=== PATIENT | female | born 1935 | race Caucasian/White ===

== ENCOUNTER 2017-08-19 12:12 | Emergency (ER) | payer MEDICARE ==
[2017-08-19] MEDS ORDERED: Albuterol/Ipratropium 3.0-0.5 MG/3 ML Neb Soln NEB ONE (13:54)
[2017-08-19] MEDS ORDERED: Levofloxacin 500 MG Tab PO SCH (14:30)
--- NOTE | 2017-08-19 14:39 | EDM.PDOC ---
ED HPI GENERAL MEDICAL PROBLEM - General Chief Complaint: General Stated Complaint: SOB Time Seen by Provider: 08/19/17 14:24 Source of Information: Reports: Patient, Family, RN History Limitations: Reports: Altered Mental Status, Physical Impairment - History of Present Illness INITIAL COMMENTS - FREE TEXT/NARRATIVE: 82 y.o.w.f was brought to the ED from the [place] due to worsening of SOB. Pt has severe RA. Her puls ox was in the In the 80% without O2. Pt arrived her in the ED with 2 liters of O2 by [place]. Puls ox was 94 then. [place] suggested pt has a pneumonia. Pt's daughter is present. Pt herself is npot able to give a HPI. Pt is 100% bedridden. Temp 37.2 BP 112/67 Onset: Unknown/Unsure Onset Date: 08/18/17 Onset Time: 08:00 Duration: Hour(s):, Getting Worse Location: Reports: Chest Quality: Reports: Other (sob) Improves with: Reports: Medication Worsens with: Reports: Movement Context: Reports: Sick Contact ((?)), Other Associated Symptoms: Reports: Weakness (unable to ambulate), Other (H/O RA) - Related Data Allergies Allergy/AdvReac Type Severity Reaction Status Date / Time aspirin Allergy Cannot Verified 12/13/16 18:54 Remember NSAIDS (Non-Steroidal Allergy Stomach Verified 12/13/16 18:54 Anti-Inflamma Upset Penicillins Allergy Hives Verified 12/13/16 18:54 Home Meds: Home Meds Acetaminophen [Acephen] 650 mg RC ASDIRECTED 12/13/16 [History] Calcium Carbonate/Vitamin D3 [Calcium 500-Vit D3 200 Tablet] 1 each PO DAILY [History] Clopidogrel [Plavix] 75 mg PO DAILY 12/13/16 [History] Cyclobenzaprine HCl 5 mg PO BID PRN 12/13/16 [History] Folic Acid 1 mg PO DAILY 12/13/16 [History] Gabapentin [Neurontin] 300 mg PO TID 12/13/16 [History] Glycerin 1 each RC Q72H PRN 12/13/16 [History] Hydrocodone/Acetaminophen [Lortab 5-325 mg Tablet] 2 each PO QID 12/13/16 [ History] Loratadine 10 mg PO DAILY 12/13/16 [History] Magnesium Hydroxide [Milk of Magnesia] 30 ml PO DAILY PRN 12/13/16 [History] Menthol [Biofreeze] 1 applic TP DAILY 12/13/16 [History] Menthol [Biofreeze] 118 ml TP DAILY 12/13/16 [History] Menthol [Cough Drops] 5 mg MM ASDIRECTED 12/13/16 [History] Methotrexate 20 mg PO TU@0800 12/13/16 [History] Multivitamins/Minerals/Lutein [Certavite SR with Lutein] 1 tab PO DAILY [History] Na Phos,M-B/Na Phos,DI-B [Fleet Enema] 133 ml RC ASDIRECTED PRN 12/13/16 [ History] Teriparatide [Forteo] 20 mcg .XX DAILY 12/13/16 [History] guaiFENesin [Robitussin] 200 mg PO Q4HR PRN 12/13/16 [History] rOPINIRole HCl [Requip] 0.25 mg PO DAILY 12/13/16 [History] Calcium Carbonate [Tums] 1,000 mg PO Q4H PRN 12/14/16 [History] Past Medical History HEENT History: Reports: Cataract, Impaired Vision Cardiovascular History: Reports: [place], Stents 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: Musculoskeletal History: Reports: Fracture, RA Neurological History: Reports: Headaches, Chronic - Infectious Disease History Infectious Disease History: Reports: Chicken Pox, Measles, Mumps - Past Surgical History HEENT Surgical History: Reports: Eye Surgery Musculoskeletal Surgical History: Reports: Other (See Below) Social & Family History - Family History Family Medical History: Noncontributory - Tobacco Use Smoking Status *Q: Former Smoker Years of Tobacco use: 50 Used Tobacco, but Quit: Yes Month Tobacco Last Used: November - Caffeine Use Caffeine Use: Reports: None - Recreational Drug Use Recreational Drug Use: No ED ROS GENERAL - Review of Systems Review Of Systems: Unable To Obtain ED EXAM, GENERAL - Physical Exam Exam: See Below Exam Limited By: Altered Mental Status General Appearance: Alert, WD/WN, Mild Distress, Obese Eye Exam: Bilateral Eye: Normal Inspection Ears: Normal External Exam Ear Exam: Bilateral Ear: Auricle Normal Nose: Normal Inspection Throat/Mouth: Normal Inspection, Normal Lips Head: Atraumatic, Normocephalic Neck: Normal Inspection Respiratory/Chest: No Accessory Muscle Use, Chest Non-Tender, Respiratory Distress Cardiovascular: Normal Peripheral Pulses Peripheral Pulses: 1+: Femoral (L), Femoral (R) GI/Abdominal: Normal Bowel Sounds, Soft (Female) Exam: Deferred Rectal (Female) Exam: Deferred Back Exam: Normal Inspection Extremities: Normal Inspection (severe RA) Neurological: Alert, Other (unable to ambulate, bed ridden) Psychiatric: Depressed Mood, Flat Affect Lymphatic: No Adenopathy Course - Vital Signs Text/Narrative:: 82 y.o.w.f was brought to the ED from the [place] due to worsening of SOB. Pt has severe RA. Her puls ox was in the In the 80% without O2. Pt arrived her in the ED with 2 liters of O2 by [place]. Puls ox was 94 then. [place] suggested pt has a pneumonia. Pt's daughter is present. Pt herself is npot able to give a HPI. Pt is 100% bedridden. Temp 37.2 BP 112/67 PE: Weak, 82 y.o.w.f with disabling RA, weak. denied any pain or discomfort, her daughter on her side. CXR: RUL infiltatrate as PER RAD Labs: WBC 16K Lactic acid 0.9 Na 132 K 3.5 H/H nl Cr. 0.5 BUN 17 RCx results are pending Impression: RUL pneumania with hypoxemia, Severe RA, Bedridden Tx: Levoquin, O2, Duoneb Reexam: Improved Plan: D/C with O2 by [place], Duoneb every 4 hours while awake for 1 day, then reevaluate Pt Last Recorded V/S: Last Vital Signs Temp 37.2 C 08/19/17 14:30 Pulse 96 08/19/17 14:24 Resp 25 H 08/19/17 14:30 BP 112/66 08/19/17 14:30 Pulse Ox 93 L 08/19/17 14:30 - Orders/Labs/Meds Orders: Active Orders 24 hr Category Date Time Status CULTURE BLOOD [BC] Urgent Lab 08/19/17 13:55 Received CULTURE BLOOD [BC] Urgent Lab 08/19/17 14:00 Results Blood Culture x2 Reflex Set [OM.PC] Urgent Oth 08/19/17 13:48 Ordered Labs: Laboratory Tests 08/19/17 08/19/17 08/19/17 Range/Units 13:05 13:05 14:00 WBC 16.1 H (4.5-12.0) X10-3/uL RBC 4.19 (3.23-5.20) x10(6)uL Hgb 13.3 (11.5-15.5) g/dL Hct 39.7 (30.0-51.3) % MCV 94.8 (80-96) fL MCH 31.6 (27.7-33.6) pg MCHC 33.4 (32.2-35.4) g/dL RDW 15.2 (11.5-15.5) % Plt Count 555 H (125-369) X10(3)uL MPV 6.0 L (7.4-10.4) fL Add Manual Diff Yes Neutrophils % (Manual) 63 (46-82) % Lymphocytes % (Manual) 31 (13-37) % Monocytes % (Manual) 3 L (4-12) % Eosinophils % (Manual) 3 (0-5) % Sodium 132 L (135-145) mmol/L Potassium 3.5 (3.5-5.3) mmol/L Chloride 99 L (100-110) mmol/L Carbon Dioxide 25 (23-29) mmol/L BUN 17 (8-23) mg/dL Creatinine 0.5 L (0.6-1.3) mg/dL Est Cr Clr Drug Dosing TNP Estimated GFR (MDRD) > 60 (>60) BUN/Creatinine Ratio 34.0 H (9-20) Glucose 102 (80-116) mg/dL Lactic Acid 0.9 (0.5-2.2) mmol/L Calcium 9.6 (8.6-10.2) mg/dL Meds: Medications Discontinued Medications Generic Name Dose Route Start Last Admin Trade Name Freq PRN Reason Stop Dose Admin Albuterol/Ipratropium 3 ml 08/19/17 13:54 08/19/17 14:11 Duoneb 3.0-0.5 Mg/3 Ml NEB 08/19/17 13:55 3 ml ONETIME ONE Administration Levofloxacin 500 mg 08/19/17 14:30 08/19/17 14:25 Levaquin PO 500 mg Q24H DONAL Administration Departure - Departure Time of Disposition: 14:36 Disposition: Home, Self-Care 01 Condition: Good Clinical Impression: Pneumonia Qualifiers: Laterality: right Lung location: upper lobe of lung - Discharge Information Instructions: Community-Acquired Pneumonia, Adult Referrals: Kevin Bunn MD [Primary Care Provider] - Forms: ED Department Discharge Additional Instructions: Please take the meds as recommended, please f/u, come back if your symptoms get worse acutely. 2 liter o2 by [place] for now. - My Orders Last 24 Hours: My Active Orders 08/19/17 13:48 Blood Culture x2 Reflex Set [OM.PC] Urgent 08/19/17 13:55 CULTURE BLOOD [BC] Urgent 08/19/17 14:00 CULTURE BLOOD [BC] Urgent - Assessment/Plan Last 24 Hours: My Active Orders 08/19/17 13:48 Blood Culture x2 Reflex Set [OM.PC] Urgent 08/19/17 13:55 CULTURE BLOOD [BC] Urgent 08/19/17 14:00 CULTURE BLOOD [BC] Urgent
--- NOTE | 2017-08-19 15:52 | CR ---
INDICATION: Cough. CHEST: AP upright portable view of the chest 08/19/2017 was compared with 03/01 and 07/28/2015, revealing infiltration in the right upper lobe, which would be compatible with an area of pneumonia. Poor inspiration does emphasize markings in general, as well as the heart size, which may be slightly enlarged. The aorta is tortuous and calcified. Overlying EKG leads are noted. Degenerative changes are noted at the left glenohumeral joint and appeared severe. IMPRESSION: Right upper lobe pneumonia. Report was given by phone to Dr. Anguiano soon after the examination was complete , 08/19/2017. [facility]
[2017-08-19 18:04] VITALS: BP 112/66
== END 2017-08-19 14:45 | disposition home or self-care (01) ==
LOC: FB.ED 12:12
DX: J18.9 Pneumonia, unspecified organism (principal); R09.02 Hypoxemia; M06.9 Rheumatoid arthritis, unspecified; I25.2 Old myocardial infarction; Z88.0 Allergy status to penicillin; Z88.8 Allergy status to other drugs, medicaments and biological substances; Z88.6 Allergy status to analgesic agent; Z79.899 Other long term (current) drug therapy; Z87.891 Personal history of nicotine dependence
CPT/HCPCS: 36415; 71010; 80048; 83605; 85025; 87040; 94640; 99285; A9270; J7620; 87077; 87186; 99284

== ENCOUNTER 2017-09-17 17:28 | Inpatient (IN) | payer MEDICARE ==
[2017-09-17] MEDS ORDERED: Albuterol/Ipratropium 3.0-0.5 MG/3 ML Neb Soln NEB ONE (18:26)
[2017-09-17] MEDS ORDERED: Albuterol/Ipratropium 3.0-0.5 MG/3 ML Neb Soln INH PRN (18:29)
--- NOTE | 2017-09-17 18:36 | EDM.PDOC ---
ED HPI GENERAL MEDICAL PROBLEM - General Stated Complaint: UTI AND PNEUMONIA Time Seen by Provider: 09/17/17 17:28 Source of Information: Reports: Patient, RN History Limitations: Reports: Altered Mental Status, Physical Impairment - History of Present Illness INITIAL COMMENTS - FREE TEXT/NARRATIVE: 82 y.o.w.f, DNR/DNI, unable to umbulate, was seen in the clinic and diagnosed with a GAMA and pneumonia. As per RAD, the CXR showed a pneumonic infiltrate RUL and LLL of lung. WBC and Lactic acid were nl. Pt is on home o2 off/on. UA was pos for uti. No F/C/N/V Onset: Today Onset Date: 09/17/17 Onset Time: 12:00 Duration: Hour(s): Location: Reports: Chest, Pelvis Quality: Reports: Dull Severity: Mild Improves with: Reports: Rest Worsens with: Reports: Movement Context: Reports: Other (fever) Associated Symptoms: Reports: Loss of Appetite, Malaise, Shortness of Breath, Weakness - Related Data Allergies Allergy/AdvReac Type Severity Reaction Status Date / Time aspirin Allergy Cannot Verified 09/17/17 19:10 Remember NSAIDS (Non-Steroidal Allergy Stomach Verified 09/17/17 19:10 Anti-Inflamma Upset Penicillins Allergy Hives Verified 09/17/17 19:10 red dye Allergy Hives Uncoded 09/17/17 19:10 Home Meds: Home Meds Acetaminophen [Acephen] 650 mg RC ASDIRECTED 12/13/16 [History] Calcium Carbonate/Vitamin D3 [Calcium 500-Vit D3 200 Tablet] 1 each PO DAILY [History] Clopidogrel [Plavix] 75 mg PO DAILY 12/13/16 [History] Folic Acid 1 mg PO DAILY 12/13/16 [History] Gabapentin [Neurontin] 300 mg PO TID 12/13/16 [History] Loratadine 10 mg PO DAILY 12/13/16 [History] Menthol [Biofreeze] 1 applic TP DAILY 12/13/16 [History] Menthol [Cough Drops] 5 mg MM ASDIRECTED 12/13/16 [History] Methotrexate 20 mg PO TU@0800 12/13/16 [History] Multivitamins/Minerals/Lutein [Certavite SR with Lutein] 1 tab PO DAILY [History] Teriparatide [Forteo] 20 mcg .XX DAILY 12/13/16 [History] guaiFENesin [Robitussin] 200 mg PO Q4HR PRN 12/13/16 [History] Past Medical History HEENT History: Reports: Cataract, Impaired Vision Cardiovascular History: Reports: [place], Stents 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: Musculoskeletal History: Reports: Fracture, RA Neurological History: Reports: Headaches, Chronic - Infectious Disease History Infectious Disease History: Reports: Chicken Pox, Measles, Mumps - Past Surgical History HEENT Surgical History: Reports: Eye Surgery Musculoskeletal Surgical History: Reports: Other (See Below) Social & Family History - Family History Family Medical History: Noncontributory - Tobacco Use Smoking Status *Q: Former Smoker Years of Tobacco use: 50 Used Tobacco, but Quit: Yes Month Tobacco Last Used: November - Caffeine Use Caffeine Use: Reports: None - Recreational Drug Use Recreational Drug Use: No ED ROS GENERAL - Review of Systems Review Of Systems: Unable To Obtain ED EXAM, GENERAL - Physical Exam Exam: See Below Exam Limited By: Physical Impairment General Appearance: Alert, WD/WN, Mild Distress, Obese Eye Exam: Bilateral Eye: Normal Inspection Ears: Normal External Exam Ear Exam: Bilateral Ear: Auricle Normal Nose: Normal Inspection, Normal Mucosa Throat/Mouth: Normal Inspection, Normal Lips, No Airway Compromise Head: Atraumatic, Normocephalic Neck: Normal Inspection, Supple, Non-Tender Respiratory/Chest: Respiratory Distress, Decreased Breath Sounds (poor insp effort), Rhonchi Cardiovascular: Normal Peripheral Pulses, Regular Rate, Rhythm Peripheral Pulses: 1+: Femoral (L), Femoral (R) GI/Abdominal: Normal Bowel Sounds, Soft (Female) Exam: Deferred Rectal (Female) Exam: Deferred Back Exam: Normal Inspection, Full Range of Motion Extremities: Normal Inspection, Other (peripheral atrophy) Neurological: Alert, Oriented, CN II-XII Intact, Other (unable to ambulate) Psychiatric: Normal Affect, Normal Mood Skin Exam: Warm, Dry Lymphatic: No Adenopathy Course - Vital Signs Text/Narrative:: 82 y.o.w.f, DNR/DNI, unable to umbulate, was seen in the clinic and diagnosed with a GAMA and pneumonia. As per RAD, the CXR showed a pneumonic infiltrate RUL and LLL of lung. WBC and Lactic acid were nl. Puls ox was 88% on RA. BP 106/59 Temp 36.8. Pt is on home o2 off/on. UA was pos for uti. No F/C/N/V PE: weak, obese 82 y.o.w.f, unable to ambulate, on home o2 off/on poor historian , no family is present Lungs: rhonchi, wheezes, poor insp effort Labs; WBC Nl Lactic acid 1.0 INR 1.08HGB 11.7 BMP WNL witha GFR > 60 Imaging: CXR RUL and LLL infiltrate as per RAD Impression: Pneumonia, UTI. Tx: Duoneb, Abx Plan: Admit for obs Last Recorded V/S: Last Vital Signs Temp 36.8 C 09/17/17 17:28 Pulse 101 H 09/17/17 17:28 Resp 20 09/17/17 17:28 BP 106/59 L 09/17/17 17:28 Pulse Ox 86 L 09/17/17 17:28 - Orders/Labs/Meds Orders: Active Orders 24 hr Category Date Time Status RT Aerosol Therapy [RC] ASDIRECTED Care 09/17/17 18:26 Active Medication Orders Albuterol/Ipratropium (Duoneb 3.0-0.5 Mg/3 Ml) 3 ml INH ONETIME PRN PRN Reason: Shortness Of Breath/wheezing Levofloxacin/Dextrose 500 mg/ (Premix) 100 mls @ 100 mls/hr IV ONETIME ONE Stop: 09/17/17 20:04 Sodium Chloride (Saline Flush) 10 ml FLUSH ASDIRECTED PRN PRN Reason: Keep Vein Open Meds: Medications Generic Name Dose Route Start Last Admin Trade Name Freq PRN Reason Stop Dose Admin Albuterol/Ipratropium 3 ml 09/17/17 18:29 Duoneb 3.0-0.5 Mg/3 Ml INH ONETIME PRN Shortness Of Breath/wheezing Levofloxacin/Dextrose 500 mg/ 100 mls @ 100 mls/hr 09/17/17 19:05 Premix IV 09/17/17 20:04 ONETIME ONE Sodium Chloride 10 ml 09/17/17 18:29 Saline Flush FLUSH ASDIRECTED PRN Keep Vein Open Discontinued Medications Generic Name Dose Route Start Last Admin Trade Name Freq PRN Reason Stop Dose Admin Albuterol/Ipratropium 3 ml 09/17/17 18:26 Duoneb 3.0-0.5 Mg/3 Ml NEB 09/17/17 18:27 ONETIME ONE Departure - Departure Time of Disposition: 18:36 Disposition: Refer to Observation Condition: Fair Clinical Impression: UTI (urinary tract infection) Pneumonia Qualifiers: Laterality: right Lung location: upper lobe of lung - Discharge Information - My Orders Last 24 Hours: My Active Orders 09/17/17 18:26 RT Aerosol Therapy [RC] ASDIRECTED - Assessment/Plan Last 24 Hours: My Active Orders 09/17/17 18:26 RT Aerosol Therapy [RC] ASDIRECTED
[2017-09-17] MEDS ORDERED: Levofloxacin/Dextrose 5%-Water 500 MG in Premix Bag 1 BAG IV ONE (19:05)
[2017-09-17] MEDS: Sodium Chloride 0.9% 250 ML IV SCH (21:10)
[2017-09-17] MEDS: Morphine 15 MG Tab.ER PO SCH (22:20)
[2017-09-18] MEDS: Morphine 15 MG Tab.ER PO SCH ×2 (08:13→21:31)
--- NOTE | 2017-09-18 08:56 | PCM.HP ---
H&P History of Present Illness - General Date of Service: 09/18/17 Admit Problem/Dx: Admission Diagnosis/Problem Admission Diagnosis/Problem Pneumonia Source of Information: Patient History Limitations: Reports: No Limitations - History of Present Illness Initial Comments - Free Text/Narative: This is an 82-year-old custodial patient was admitted last night for pneumonia. She's had a cough for long time and she was evaluated by the nurse practitioner said her sats were 70% so she was transferred over her per and her family's request. She had a x-ray that showed pneumonia both lungs. His had pneumonia recently but I do not have information of what she done. She denies shortness of breath today. She states she has a cough. She denies fevers, chills , nasal congestion, sore throat, chest pain. The patient denies dysuria, pyuria , urinary frequency or back. According to the custodial the patient was diagnosed with a upper right lobe pneumonia and put on Levaquin 500 milligrams a day for 10 days. Generalized Pain Score (Numeric/FACES): 4 - Related Data Allergies/Adverse Reactions: Allergies Allergy/AdvReac Type Severity Reaction Status Date / Time aspirin Allergy Cannot Verified 09/17/17 19:10 Remember NSAIDS (Non-Steroidal Allergy Stomach Verified 09/17/17 19:10 Anti-Inflamma Upset Penicillins Allergy Hives Verified 09/17/17 19:10 red dye Allergy Hives Uncoded 09/17/17 19:10 Home Medications: Home Meds Acetaminophen [Acephen] 650 mg RC Q4HR PRN 12/13/16 [History] Calcium Carbonate/Vitamin D3 [Calcium 500-Vit D3 200 Tablet] 1 tab PO DAILY [History] Clopidogrel [Plavix] 75 mg PO DAILY 12/13/16 [History] Folic Acid 1 mg PO DAILY 12/13/16 [History] Loratadine 10 mg PO DAILY 12/13/16 [History] Menthol [Biofreeze] 1 applic TP BID 12/13/16 [History] Menthol [Cough Drops] 5 mg MM TID 12/13/16 [History] Methotrexate 20 mg PO TU@0800 12/13/16 [History] Teriparatide [Forteo] 20 mcg SQ DAILY 12/13/16 [History] guaiFENesin [Robitussin] 200 mg PO Q4HR PRN 12/13/16 [History] Albuterol/Ipratropium [DuoNeb 3.0-0.5 MG/3 ML] 3 ml INH QID 09/17/17 [History] Bifidobacterium Infantis [Align] 4 mg PO 1200 09/17/17 [History] Bisacodyl [Dulcolax] 10 mg RC ASDIRECTED PRN 09/17/17 [History] DULoxetine [Cymbalta] 60 mg PO DAILY 09/17/17 [History] Morphine [MS Contin] 15 mg PO BID 09/17/17 [History] Multivit-Min/FA/Lycopene/Lut [Certavite Sr-Antioxidant Tab] 1 tab PO DAILY 09/17 [History] Sennosides/Docusate Sodium [Senna S Tablet] 1 each PO BID 09/17/17 [History] oxyCODONE HCl [Oxycodone HCl] 5 mg PO BID PRN 09/17/17 [History] Acetaminophen [Tylenol] 650 mg PO Q4H PRN 09/18/17 [History] Calcium Carbonate [Tums] 1,000 mg PO Q4H PRN 09/18/17 [History] Gabapentin [Neurontin] 600 mg PO QID 09/18/17 [History] Magnesium Hydroxide [Milk of Magnesia] 30 ml PO DAILY PRN 09/18/17 [History] Polyethylene Glycol 3350 [MiraLAX] 17 gm PO DAILY PRN 09/18/17 [History] Past Medical History HEENT History: Reports: Cataract, Impaired Vision Cardiovascular History: Reports: [place], Stents 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: Reports: 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: Musculoskeletal History: Reports: Fracture, RA, Other (See Below) Other Musculoskeletal History: restless leg syndrome Neurological History: Reports: Headaches, Chronic - Infectious Disease History Infectious Disease History: Reports: Chicken Pox, Measles, Mumps - Past Surgical History HEENT Surgical History: Reports: Eye Surgery Musculoskeletal Surgical History: Reports: Other (See Below) Other Musculoskeletal Surgeries/Procedures:: some toe removed Social & Family History - Family History Family Medical History: Noncontributory - Tobacco Use Smoking Status *Q: Former Smoker Years of Tobacco use: 50 Packs/Tins Daily: 1 Used Tobacco, but Quit: Yes Month Tobacco Last Used: january Second Hand Smoke Exposure: No - Caffeine Use Caffeine Use: Reports: Coffee Other Caffeine Use: 2-3 - Alcohol Use Days Per Week of Alcohol Use: 0 - Recreational Drug Use Recreational Drug Use: No H&P Review of Systems - Review of Systems: Review Of Systems: See Below General: Reports: No Symptoms HEENT: Reports: No Symptoms Pulmonary: Reports: Cough. Denies: Shortness of Breath, Wheezing, Pleuritic Chest Pain, Sputum, Hemoptysis Cardiovascular: Reports: No Symptoms Gastrointestinal: Reports: No Symptoms Genitourinary: Reports: No Symptoms Musculoskeletal: Reports: Joint Pain, Other (Does not want to use a wheelchair.) Skin: Reports: No Symptoms Psychiatric: Reports: No Symptoms Neurological: Reports: No Symptoms Hematologic/Lymphatic: Reports: No Symptoms Immunologic: Reports: No Symptoms Exam - Exam Exam: See Below - Vital Signs Vital Signs: Last Vital Signs Temp 98.0 F 09/18/17 04:00 Pulse 89 09/18/17 04:00 Resp 16 09/18/17 04:00 BP 95/51 L 09/18/17 04:00 Pulse Ox 93 L 09/18/17 04:00 Weight: 124 lb 12.8 oz - Exam General: Alert, Oriented, Cooperative HEENT: PERRLA, Conjunctiva Clear, Hearing Intact, Posterior Pharynx Clear, TMs Clear Neck: Supple, Trachea Midline Lungs: Normal Respiratory Effort, Crackles, Wheezing Cardiovascular: Regular Rate, Regular Rhythm. No: Systolic Murmur, Diastolic Murmur GI/Abdominal Exam: Normal Bowel Sounds, Soft, Non-Tender, No Organomegaly, No Abnormal Bruit Back Exam: Normal Inspection Extremities: Non-Tender, No Pedal Edema, Other (Ulnar deviation of her fingers bilateral hands) Skin: Warm, Dry, Intact Neurological: Normal Speech, Normal Tone Neuro Extensive - Motor, Sensory, Reflexes: No: Normal Gait Psychiatric: Alert, Normal Affect, Normal Mood - Patient Data Lab Results Last 24 hrs: Laboratory Results - last 24 hr 09/18/17 09/18/17 09/18/17 Range/Units 07:15 07:15 07:15 WBC 8.3 (4.5-12.0) X10-3/uL RBC 3.58 (3.23-5.20) x10(6)uL Hgb 10.9 L (11.5-15.5) g/dL Hct 33.3 (30.0-51.3) % MCV 93.0 (80-96) fL MCH 30.4 (27.7-33.6) pg MCHC 32.6 (32.2-35.4) g/dL RDW 16.4 H (11.5-15.5) % Plt Count 334 (125-369) X10(3)uL MPV 6.2 L (7.4-10.4) fL Neut % (Auto) 48.7 (46-82) % Lymph % (Auto) 35.2 (13-37) % [place] % (Auto) 8.2 (4-12) % Eos % (Auto) 7 H (1.0-5.0) % Baso % (Auto) 1 (0-2) % Neut # (Auto) 4.0 (1.6-8.3) # Lymph # (Auto) 2.9 (0.6-5.0) # Stan[place] # (Auto) 0.7 (0.0-1.3) # Eos # (Auto) 0.6 (0.0-0.8) # Baso # (Auto) 0.0 (0.0-0.2) # Sodium 136 (135-145) mmol/L Potassium 4.0 (3.5-5.3) mmol/L Chloride 101 (100-110) mmol/L Carbon Dioxide 27 (23-29) mmol/L BUN 9 (8-23) mg/dL Creatinine 0.5 L (0.6-1.3) mg/dL Est Cr Clr Drug Dosing 67.43 mL/min Estimated GFR (MDRD) > 60 (>60) BUN/Creatinine Ratio 18.0 (9-20) Glucose 82 (80-116) mg/dL Calcium 8.5 L (8.6-10.2) mg/dL B-Natriuretic Peptide 220 H (0-100) pg/mL Result Diagrams: 09/18/17 07:15 09/18/17 07:15 *Q Meaningful Use (ADM) - VTE *Q VTE Criteria *Q: - Stroke *Q Stroke Criteria *Q: - AMI *Q AMI Criteria *Q: - Problem List (1) Palliative care status SNOMED Code(s): 319901593 ICD Code: Z51.5 - ENCOUNTER FOR PALLIATIVE CARE Status: Acute Current Visit: Yes (2) Hypoxia SNOMED Code(s): 993944046 ICD Code: R09.02 - HYPOXEMIA Status: Acute Current Visit: Yes (3) Pneumonia SNOMED Code(s): 430977471 ICD Code: J18.9 - PNEUMONIA, UNSPECIFIED ORGANISM Status: Acute Current Visit: Yes Qualifiers: Laterality: right Lung location: upper lobe of lung (4) UTI (urinary tract infection) SNOMED Code(s): 70651341 ICD Code: N39.0 - URINARY TRACT INFECTION, SITE NOT SPECIFIED Status: Acute Current Visit: Yes Problem List Initiated/Reviewed/Updated: Yes Orders Last 24hrs: Active Orders 24 hr Category Date Time Status Soft Diet [DIET] Diet 09/18/17 Breakfast Active FLU Vacc [id number] 36Mos UP/PF [Fluzone Quad [id number]] Med 09/18/17 10:00 Once 60 mcg IM .ONCE ONE Gabapentin [Neurontin] Med 09/17/17 22:30 Active 600 mg PO QID Morphine [MS Contin] Med 09/17/17 20:00 Active 15 mg PO Q12H Sodium Chloride 0.9% [Normal Saline] 250 ml Med 09/17/17 21:15 Active IV ASDIRECTED Medication Orders Albuterol/Ipratropium (Duoneb 3.0-0.5 Mg/3 Ml) 3 ml INH ONETIME PRN PRN Reason: Shortness Of Breath/wheezing Gabapentin (Neurontin) 600 mg PO QID [facility] Last Admin: 09/17/17 22:20 Dose: 600 mg Sodium Chloride (Normal Saline) 250 mls @ 100 mls/hr IV ASDIRECTED [facility] Last Admin: 09/17/17 21:10 Dose: 100 mls/hr Influenza Virus Vaccine (Fluzone Quad ) 60 mcg IM .ONCE ONE Stop: 09/18/17 10:01 Morphine Sulfate (Ms Contin) 15 mg PO Q12H [facility] Last Admin: 09/18/17 08:13 Dose: 15 mg Admin: 09/17/17 22:20 Dose: 15 mg Sodium Chloride (Saline Flush) 10 ml FLUSH ASDIRECTED PRN PRN Reason: Keep Vein Open Assessment/Plan Comment:: 1. Admit as inpatient. 2. Continue home medications as per reconcile. 3. Levaquin 500 mg IV once a day. Consider adding another antibiotic because she 's been on Levaquin recently. 4. O2 to keep sat between [id number]%. 5. BTE prophylaxis 6. DNR. 7. Regular diet. 8. Wheelchair and up in chair. 9. UA was positive and the culture is not in this chart so he have to look up the urine culture was done. 10. Blood cultures 2 and sputum culture.
[2017-09-18] MEDS ORDERED: Polyethylene Glycol 3350 Powder 17 GM Packet PO PRN (09:08)
[2017-09-18] MEDS ORDERED: Bisacodyl 10 MG Supp RECTAL PRN (09:08)
[2017-09-18] MEDS ORDERED: Acetaminophen 325 MG Tab PO PRN (09:08)
[2017-09-18] MEDS ORDERED: oxyCODONE 5 MG Tab PO PRN (09:08)
[2017-09-18] MEDS ORDERED: Calcium Carbonate 500 MG Tab.Chew PO PRN (09:08)
[2017-09-18] MEDS ORDERED: guaiFENesin 100 MG/5 ML Soln 5 ML UD Cup PO PRN (09:08)
[2017-09-18] MEDS ORDERED: Magnesium Hydroxide 400 MG/5 ML Susp 30 ML Cup PO PRN (09:08)
[2017-09-18] MEDS ORDERED: FLU Vacc QS 2017-18 (36mos UP)/PF 60 MCG/0.5 ML Syringe IM ONE (10:00)
[2017-09-18] MEDS: DULoxetine 60 MG Cap PO SCH (10:24)
[2017-09-18] MEDS: Calcium Carbonate/Vitamin D3 1250 MG-200 Unit Tab PO SCH (10:24)
[2017-09-18] MEDS: Loratadine 10 MG Tab PO SCH (10:24)
[2017-09-18] MEDS: Multivitamins, Therapeutic with Minerals Tab PO SCH (10:25)
[2017-09-18] MEDS: Clopidogrel 75 MG Tab PO SCH (10:25)
[2017-09-18] MEDS: Gabapentin 600 MG Tab PO SCH ×4 (10:25→21:10)
[2017-09-18] MEDS: Folic Acid 1 MG Tab PO SCH (10:25)
[2017-09-18] MEDS: Enoxaparin 30 MG/0.3 ML Syringe SUBCUT SCH (10:42)
[2017-09-18] MEDS: TERIPARATIDE 600 MCG/2.4 ML SUBCUT SCH (10:44)
[2017-09-18] MEDS: Albuterol/Ipratropium 3.0-0.5 MG/3 ML Neb Soln INH SCH ×3 (11:04→21:09)
[2017-09-18] MEDS ORDERED: Saccharomyces Boulardii (Probiotic) 250 MG Cap PO SCH (12:00)
[2017-09-18] MEDS ORDERED: MENTHOL 5 MG MM PRN (14:00)
[2017-09-18] MEDS: Sodium Chloride 0.9% 10 ML Syringe FLUSH PRN ×2 (17:44→20:28)
[2017-09-18] MEDS ORDERED: Levofloxacin/Dextrose 5%-Water 750 MG in Premix Bag 1 BAG IV SCH (18:00)
[2017-09-18] MEDS: Sodium Chloride 0.9% 250 ML IV SCH (18:34)
[2017-09-18] MEDS ORDERED: Perform Pain Reliever Gel 89 ML Tube TP PRN (21:00)
[2017-09-18] MEDS ORDERED: Morphine 15 MG Tab.ER PO SCH (21:00)
[2017-09-19] MEDS: Albuterol/Ipratropium 3.0-0.5 MG/3 ML Neb Soln INH SCH (06:34)
[2017-09-19] MEDS: Morphine 15 MG Tab.ER PO SCH (08:21)
[2017-09-19] MEDS: Multivitamins, Therapeutic with Minerals Tab PO SCH (08:21)
[2017-09-19] MEDS: Loratadine 10 MG Tab PO SCH (08:22)
[2017-09-19] MEDS: DULoxetine 60 MG Cap PO SCH (08:22)
[2017-09-19] MEDS: Gabapentin 600 MG Tab PO SCH (08:22)
[2017-09-19] MEDS: Calcium Carbonate/Vitamin D3 1250 MG-200 Unit Tab PO SCH (08:22)
[2017-09-19] MEDS: Folic Acid 1 MG Tab PO SCH (08:22)
[2017-09-19] MEDS: Clopidogrel 75 MG Tab PO SCH (08:22)
--- NOTE | 2017-09-19 08:49 | PCM.PN ---
- General Info Date of Service: 09/19/17 Admission Dx/Problem (Free Text): Patient is without complaints she denies shortness of breath, wheezing, cough, fevers, chills but - Patient Data Vitals - Most Recent: Last Vital Signs Temp 98.1 F 09/19/17 00:30 Pulse 88 09/19/17 06:45 Resp 20 09/19/17 00:30 BP 111/59 L 09/19/17 00:30 Pulse Ox 90 L 09/19/17 06:45 Weight - Most Recent: 124 lb 12.8 oz I&O - Last 24 Hours: Intake & Output 09/18/17 09/19/17 09/19/17 22:59 06:59 14:59 Intake Total 360 Output Total 200 Balance 360 -200 Eros Results Last 24 Hours: Microbiology 09/18/17 13:10 Gram Stain - Final Sputum - Expectorated Med Orders - Current: Current Medications Acetaminophen (Tylenol) 650 mg PO Q4H PRN PRN Reason: Pain/Fever Albuterol/Ipratropium (Duoneb 3.0-0.5 Mg/3 Ml) 3 ml INH ONETIME PRN PRN Reason: Shortness Of Breath/wheezing Albuterol/Ipratropium (Duoneb 3.0-0.5 Mg/3 Ml) 3 ml INH QIDRT REPLACED BY [facility] Last Admin: 09/19/17 06:34 Dose: 3 ml Bisacodyl (Dulcolax) 10 mg RECTAL ASDIRECTED PRN PRN Reason: Constipation Calcium Carbonate (Calcium Carbonate/Vitamin D 1250 Mg-200 Unit) 1 tab PO DAILY REPLACED BY [facility] Last Admin: 09/19/17 08:22 Dose: 1 tab Calcium Carbonate/Glycine (Tums) 1,000 mg PO Q4H PRN PRN Reason: GERD Clopidogrel Bisulfate (Plavix) 75 mg PO DAILY REPLACED BY [facility] Last Admin: 09/19/17 08:22 Dose: 75 mg Duloxetine HCl (Cymbalta) 60 mg PO DAILY REPLACED BY [facility] Last Admin: 09/19/17 08:22 Dose: 60 mg Enoxaparin Sodium (Lovenox) 30 mg SUBCUT Q24H REPLACED BY [facility] Last Admin: 09/18/17 10:42 Dose: 30 mg Folic Acid (Folic Acid) 1 mg PO DAILY REPLACED BY [facility] Last Admin: 09/19/17 08:22 Dose: 1 mg Gabapentin (Neurontin) 600 mg PO QID REPLACED BY [facility] Last Admin: 09/19/17 08:22 Dose: 600 mg Guaifenesin (Robitussin) 200 mg PO Q4H PRN PRN Reason: Cough Sodium Chloride (Normal Saline) 250 mls @ 100 mls/hr IV ASDIRECTED REPLACED BY [facility] Last Admin: 09/18/17 18:34 Dose: 100 mls/hr Levofloxacin/Dextrose 750 mg/ (Premix) 150 mls @ 100 mls/hr IV Q24H REPLACED BY [facility] Last Admin: 09/18/17 18:34 Dose: 100 mls/hr Loratadine (Claritin) 10 mg PO DAILY REPLACED BY [facility] Last Admin: 09/19/17 08:22 Dose: 10 mg Magnesium Hydroxide (Milk Of Magnesia) 30 ml PO DAILY PRN PRN Reason: Constipation Menthol (Perform Pain Reliever) 0 ml TP BID PRN PRN Reason: ARTHRITIS Methotrexate (Methotrexate) 20 mg PO TU@0800 REPLACED BY [facility] Morphine Sulfate (Ms Contin) 15 mg PO Q12H REPLACED BY [facility] Last Admin: 09/19/17 08:21 Dose: 15 mg Multivitamins/Minerals (Vitamins And Minerals) 1 tab PO DAILY REPLACED BY [facility] Last Admin: 09/19/17 08:21 Dose: 1 tab Non-Formulary Medication (Menthol [Cough Drops]) 5 mg MM ASDIRECTED PRN PRN Reason: COUGH Oxycodone HCl (Oxycodone) 5 mg PO BID PRN PRN Reason: Pain Last Admin: 09/18/17 13:40 Dose: 5 mg Polyethylene Glycol (Miralax) 17 gm PO DAILY PRN PRN Reason: Constipation Saccharomyces Boulardii (Florastor) 250 mg PO 1200 REPLACED BY [facility] Last Admin: 09/18/17 13:29 Dose: 250 mg Senna/Docusate Sodium (Senna Plus) 1 tab PO BID REPLACED BY [facility] Last Admin: 09/19/17 08:22 Dose: 1 tab Sodium Chloride (Saline Flush) 10 ml FLUSH ASDIRECTED PRN PRN Reason: Keep Vein Open Last Admin: 09/18/17 20:28 Dose: 10 ml Teriparatide Acetate (Forteo) 20 mcg SUBCUT DAILY REPLACED BY [facility] Last Admin: 09/18/17 10:44 Dose: 20 mcg Discontinued Medications Albuterol/Ipratropium (Duoneb 3.0-0.5 Mg/3 Ml) 3 ml NEB ONETIME ONE Stop: 09/17/17 18:27 Last Admin: 09/17/17 21:15 Dose: 3 ml Gabapentin (Neurontin) 600 mg PO QID [facility] Gabapentin (Neurontin) 600 mg PO QID [facility] Last Admin: 09/18/17 23:45 Dose: Not Given Levofloxacin/Dextrose 500 mg/ (Premix) 100 mls @ 100 mls/hr IV ONETIME ONE Stop: 09/17/17 20:04 Last Admin: 09/17/17 21:10 Dose: 100 mls/hr Influenza Virus Vaccine (Pharmacy To Dose - Influenza Vaccine) 1 each IM ONETIME ONE Stop: 09/17/17 23:30 Influenza Virus Vaccine (Fluzone Quad [id number]) 60 mcg IM .ONCE ONE Stop: 09/18/17 10:01 Last Admin: 09/18/17 10:42 Dose: 60 mcg - Exam General: Alert, Oriented, Cooperative HEENT: Pupils Equal Lungs: Clear to Auscultation, Crackles Cardiovascular: Regular Rate, Regular Rhythm, No Murmurs Extremities: No Pedal Edema - Problem List & Annotations (1) Palliative care status SNOMED Code(s): 849849504 Code(s): Z51.5 - ENCOUNTER FOR PALLIATIVE CARE Status: Acute Current Visit: Yes (2) Hypoxia SNOMED Code(s): 871078655 Code(s): R09.02 - HYPOXEMIA Status: Acute Current Visit: Yes (3) Pneumonia SNOMED Code(s): 992789698 Code(s): J18.9 - PNEUMONIA, UNSPECIFIED ORGANISM Status: Acute Current Visit: Yes Qualifiers: Laterality: right Lung location: upper lobe of lung (4) UTI (urinary tract infection) SNOMED Code(s): 69871234 Code(s): N39.0 - URINARY TRACT INFECTION, SITE NOT SPECIFIED Status: Acute Current Visit: Yes - Problem List Review Problem List Initiated/Reviewed/Updated: Yes - My Orders Last 24 Hours: My Active Orders 09/18/17 18:00 Levofloxacin/Dextrose 5%-Water [Levaquin in D5W 750 MG/150 ML] 750 mg Premix Bag 1 bag IV Q24H - Assessment Assessment:: Discharge back to the longterm on Levaquin and O2 to keep sats greater than 90%. - Plan Plan:: 1. Admit as inpatient. 2. Continue home medications as per reconcile. 3. Levaquin 500 mg IV once a day. Consider adding another antibiotic because she 's been on Levaquin recently. 4. O2 to keep sat between 8892%. 5. BTE prophylaxis 6. DNR. 7. Regular diet. 8. Wheelchair and up in chair. 9. UA was positive and the culture is not in this chart so he have to look up the urine culture was done. 10. Blood cultures 2 and sputum culture.
--- NOTE | 2017-09-19 08:59 | PCM.DCSUM1 ---
Discharge Summary - Hospital Course Free Text/Narrative:: Hospital course-patient was placed in the hospital on O2 nasal cannula and IV Levaquin 750 mg a day. Patient did well and she had no cough or shortness of breath. Her oxygen improved to in the low 90s at 2 L. She still required oxygen. She of course has rheumatoid arthritis and is in a wheelchair and cannot move. But she had no complaints. She denies fevers, chills, shortness of breath while she was here. She had a urine culture done in the ER that showed alphahemolytic strep. One blood culture out of 2 grew Staphylococcus Lugdunensis sensitive to Levaquin. Patient was doing so well I believe she can be back at the intermediate on oxygen nasal cannula and Levaquin 750 mg a day. Pharmacy calculated her creatinine clearance that she can tolerate this dose. Chest x-ray and UA in 2 weeks. Brief History: This is an 82-year-old intermediate patient was admitted last night for pneumonia. She's had a cough for long time and she was evaluated by the nurse practitioner said her sats were 70% so she was transferred over her per and her family's request. She had a x-ray that showed pneumonia both lungs. His had pneumonia recently but I do not have information of what she done. She denies shortness of breath today. She states she has a cough. She denies fevers , chills, nasal congestion, sore throat, chest pain. The patient denies dysuria , pyuria, urinary frequency or back. According to the intermediate the patient was diagnosed with a upper right lobe pneumonia and put on Levaquin 500 milligrams a day for 10 days. - Discharge Data Discharge Date: 09/19/17 Discharge Disposition: DC/Tfer to [place] [id number] Condition: Fair - Discharge Diagnosis/Problem(s) (1) Palliative care status SNOMED Code(s): 312541936 ICD Code: Z51.5 - ENCOUNTER FOR PALLIATIVE CARE Status: Acute Current Visit: Yes (2) Hypoxia SNOMED Code(s): 318779071 ICD Code: R09.02 - HYPOXEMIA Status: Acute Current Visit: Yes (3) Pneumonia SNOMED Code(s): 780038165 ICD Code: J18.9 - PNEUMONIA, UNSPECIFIED ORGANISM Status: Acute Current Visit: Yes Qualifiers: Laterality: right Lung location: upper lobe of lung (4) UTI (urinary tract infection) SNOMED Code(s): 86291143 ICD Code: N39.0 - URINARY TRACT INFECTION, SITE NOT SPECIFIED Status: Acute Current Visit: Yes - Patient Instructions Diet: Regular Diet as Tolerated Activity: Non Weight Bearing Driving: Do Not Drive Showering/Bathing: May Shower Notify Provider of: Fever, Increased Pain Other/Special Instructions: 1. O2 nasal cannula to keep saturations greater than 90%. 2. Chest x-ray in 2 weeks and UA in 2 weeks. - Discharge Plan Prescriptions/Med Rec: Levofloxacin [Levaquin] 750 mg PO Q24H #12 tablet Home Medications: Home Meds Acetaminophen [Acephen] 650 mg RC Q4HR PRN 12/13/16 [History] Calcium Carbonate/Vitamin D3 [Calcium 500-Vit D3 200 Tablet] 1 tab PO DAILY [History] Clopidogrel [Plavix] 75 mg PO DAILY 12/13/16 [History] Folic Acid 1 mg PO DAILY 12/13/16 [History] Loratadine 10 mg PO DAILY 12/13/16 [History] Menthol [Biofreeze] 1 applic TP BID PRN 12/13/16 [History] Menthol [Cough Drops] 5 mg PO ASDIRECTED PRN 12/13/16 [History] Methotrexate 20 mg PO TU@0800 12/13/16 [History] Teriparatide [Forteo] 20 mcg SQ DAILY 12/13/16 [History] guaiFENesin [Robitussin] 200 mg PO Q4HR PRN 12/13/16 [History] Albuterol/Ipratropium [DuoNeb 3.0-0.5 MG/3 ML] 3 ml INH QID 09/17/17 [History] Bifidobacterium Infantis [Align] 4 mg PO 1200 09/17/17 [History] Bisacodyl [Dulcolax] 10 mg RC ASDIRECTED PRN 09/17/17 [History] DULoxetine [Cymbalta] 60 mg PO DAILY 09/17/17 [History] Morphine [MS Contin] 15 mg PO BID 09/17/17 [History] Multivit-Min/FA/Lycopene/Lut [Certavite Sr-Antioxidant Tab] 1 tab PO DAILY 09/17 [History] Sennosides/Docusate Sodium [Senna S Tablet] 1 each PO BID 09/17/17 [History] oxyCODONE HCl [Oxycodone HCl] 5 mg PO BID PRN 09/17/17 [History] Acetaminophen [Tylenol] 650 mg PO Q4H PRN 09/18/17 [History] Calcium Carbonate [Tums] 1,000 mg PO Q4H PRN 09/18/17 [History] Gabapentin [Neurontin] 600 mg PO QID 09/18/17 [History] Magnesium Hydroxide [Milk of Magnesia] 30 ml PO DAILY PRN 09/18/17 [History] Polyethylene Glycol 3350 [MiraLAX] 17 gm PO DAILY PRN 09/18/17 [History] Levofloxacin [Levaquin] 750 mg PO Q24H #12 tablet 09/19/17 [Rx] Patient Handouts: Shortness of Breath, [id number], Urinary Tract Infection, Adult, Pleural Effusion, Deep Vein Thrombosis Forms: ED Department Discharge Referrals: Kevin Bunn MD [Primary Care Provider] - - Discharge Summary/Plan Comment DC Time >30 min.: No - Patient Data Vitals - Most Recent: Last Vital Signs Temp 98.1 F 09/19/17 00:30 Pulse 88 09/19/17 06:45 Resp 20 09/19/17 00:30 BP 111/59 L 09/19/17 00:30 Pulse Ox 90 L 09/19/17 06:45 Weight - Most Recent: 124 lb 12.8 oz I&O - Last 24 hours: Intake & Output 09/18/17 09/19/17 09/19/17 22:59 06:59 14:59 Intake Total 360 Output Total 200 Balance 360 -200 ANTHONY Results - Last 24 hrs: Microbiology 09/18/17 13:10 Gram Stain - Final Sputum - Expectorated Med Orders - Current: Current Medications Acetaminophen (Tylenol) 650 mg PO Q4H PRN PRN Reason: Pain/Fever Albuterol/Ipratropium (Duoneb 3.0-0.5 Mg/3 Ml) 3 ml INH ONETIME PRN PRN Reason: Shortness Of Breath/wheezing Albuterol/Ipratropium (Duoneb 3.0-0.5 Mg/3 Ml) 3 ml INH QIDRT [facility] Last Admin: 09/19/17 06:34 Dose: 3 ml Bisacodyl (Dulcolax) 10 mg RECTAL ASDIRECTED PRN PRN Reason: Constipation Calcium Carbonate (Calcium Carbonate/Vitamin D 1250 Mg-200 Unit) 1 tab PO DAILY [facility] Last Admin: 09/19/17 08:22 Dose: 1 tab Calcium Carbonate/Glycine (Tums) 1,000 mg PO Q4H PRN PRN Reason: GERD Clopidogrel Bisulfate (Plavix) 75 mg PO DAILY [facility] Last Admin: 09/19/17 08:22 Dose: 75 mg Duloxetine HCl (Cymbalta) 60 mg PO DAILY [facility] Last Admin: 09/19/17 08:22 Dose: 60 mg Enoxaparin Sodium (Lovenox) 30 mg SUBCUT Q24H [facility] Last Admin: 09/18/17 10:42 Dose: 30 mg Folic Acid (Folic Acid) 1 mg PO DAILY [facility] Last Admin: 09/19/17 08:22 Dose: 1 mg Gabapentin (Neurontin) 600 mg PO QID [facility] Last Admin: 09/19/17 08:22 Dose: 600 mg Guaifenesin (Robitussin) 200 mg PO Q4H PRN PRN Reason: Cough Sodium Chloride (Normal Saline) 250 mls @ 100 mls/hr IV ASDIRECTED [facility] Last Admin: 09/18/17 18:34 Dose: 100 mls/hr Levofloxacin/Dextrose 750 mg/ (Premix) 150 mls @ 100 mls/hr IV Q24H [facility] Last Admin: 09/18/17 18:34 Dose: 100 mls/hr Loratadine (Claritin) 10 mg PO DAILY [facility] Last Admin: 09/19/17 08:22 Dose: 10 mg Magnesium Hydroxide (Milk Of Magnesia) 30 ml PO DAILY PRN PRN Reason: Constipation Menthol (Perform Pain Reliever) 0 ml TP BID PRN PRN Reason: ARTHRITIS Methotrexate (Methotrexate) 20 mg PO TU@0800 [facility] Morphine Sulfate (Ms Contin) 15 mg PO Q12H [facility] Last Admin: 09/19/17 08:21 Dose: 15 mg Multivitamins/Minerals (Vitamins And Minerals) 1 tab PO DAILY [facility] Last Admin: 09/19/17 08:21 Dose: 1 tab Non-Formulary Medication (Menthol [Cough Drops]) 5 mg MM ASDIRECTED PRN PRN Reason: COUGH Oxycodone HCl (Oxycodone) 5 mg PO BID PRN PRN Reason: Pain Last Admin: 09/18/17 13:40 Dose: 5 mg Polyethylene Glycol (Miralax) 17 gm PO DAILY PRN PRN Reason: Constipation Saccharomyces Boulardii (Florastor) 250 mg PO 1200 [facility] Last Admin: 09/18/17 13:29 Dose: 250 mg Senna/Docusate Sodium (Senna Plus) 1 tab PO BID [facility] Last Admin: 09/19/17 08:22 Dose: 1 tab Sodium Chloride (Saline Flush) 10 ml FLUSH ASDIRECTED PRN PRN Reason: Keep Vein Open Last Admin: 09/18/17 20:28 Dose: 10 ml Teriparatide Acetate (Forteo) 20 mcg SUBCUT DAILY [facility] Last Admin: 09/18/17 10:44 Dose: 20 mcg Discontinued Medications Albuterol/Ipratropium (Duoneb 3.0-0.5 Mg/3 Ml) 3 ml NEB ONETIME ONE Stop: 09/17/17 18:27 Last Admin: 09/17/17 21:15 Dose: 3 ml Gabapentin (Neurontin) 600 mg PO QID DONAL Gabapentin (Neurontin) 600 mg PO QID [facility] Last Admin: 09/18/17 23:45 Dose: Not Given Levofloxacin/Dextrose 500 mg/ (Premix) 100 mls @ 100 mls/hr IV ONETIME ONE Stop: 09/17/17 20:04 Last Admin: 09/17/17 21:10 Dose: 100 mls/hr Influenza Virus Vaccine (Pharmacy To Dose - Influenza Vaccine) 1 each IM ONETIME ONE Stop: 09/17/17 23:30 Influenza Virus Vaccine (Fluzone Quad [id number]) 60 mcg IM .ONCE ONE Stop: 09/18/17 10:01 Last Admin: 09/18/17 10:42 Dose: 60 mcg *Q Meaningful Use (DIS) - VTE *Q VTE Criteria *Q: - Stroke *Q Stroke Criteria *Q: - AMI *Q AMI Criteria *Q:
[2017-09-19] MEDS: TERIPARATIDE 600 MCG/2.4 ML SUBCUT SCH (09:28)
[2017-09-19] MEDS: Enoxaparin 30 MG/0.3 ML Syringe SUBCUT SCH (09:28)
[2017-09-19 10:35] VITALS: BP 118/51
[2017-09-24] MEDS ORDERED: Methotrexate 2.5 MG Tab PO SCH (08:00)
== END 2017-09-19 10:20 | DRG 194 ==
LOC: FB.ED 17:28 → FB.MS 18:29 → UNDOADMOB 18:29 → OBSVTOIN 09-18 09:45
PROVIDERS: ADMIT Family Medicine; ATTEND Family Medicine
DX: J18.9 Pneumonia, unspecified organism (principal); N39.0 Urinary tract infection, site not specified; B95.4 Other streptococcus as the cause of diseases classified elsewhere; R09.02 Hypoxemia; Z66 Do not resuscitate; Z99.81 Dependence on supplemental oxygen; Z87.891 Personal history of nicotine dependence; Z99.3 Dependence on wheelchair; Z51.5 Encounter for palliative care; R50.9 Fever, unspecified; M19.012 Primary osteoarthritis, left shoulder; K21.9 Gastro-esophageal reflux disease without esophagitis; M06.9 Rheumatoid arthritis, unspecified; Z95.5 Presence of coronary angioplasty implant and graft; I25.2 Old myocardial infarction; H54.7 Unspecified visual loss; R51 Headache; Z88.6 Allergy status to analgesic agent; Z91.041 Radiographic dye allergy status; Z88.0 Allergy status to penicillin; Z23 Encounter for immunization
CPT/HCPCS: 36415 ×2; 71010; 80048 ×2; 81001; 83605; 83880 ×2; 85025 ×2; 85610; 87040 ×2; 87086; 94640; 99284; A9270 ×3; J1956; J7050; J7620; 87070; 87205; 90686; 96365; G0008; G0378; J1650

== ENCOUNTER 2017-09-23 08:36 | Inpatient (IN) | payer MEDICAID, MEDICARE ==
[2017-09-23] MEDS ORDERED: Albuterol/Ipratropium 3.0-0.5 MG/3 ML Neb Soln NEB ONE (08:46)
[2017-09-23] MEDS: Sodium Chloride 0.9% 10 ML Syringe FLUSH PRN ×5 (08:53→23:06)
--- NOTE | 2017-09-23 09:03 | EDM.PDOC ---
ED HPI GENERAL MEDICAL PROBLEM - General Chief Complaint: Respiratory Problem Stated Complaint: SOB Time Seen by Provider: 09/23/17 08:36 Source of Information: Reports: Patient, Family, RN - History of Present Illness INITIAL COMMENTS - FREE TEXT/NARRATIVE: 82 y.o.w.f DNR/DNI was d/c'd from this hospital a few days ago. Pt was admitted for pneumonia. Pt was not responing at the [facility]. Daughter wanted her to be seen in the ed. Pt had mottled extr. was in resp distress. RR20 BP 120/78 Pulse Onset: Today Onset Date: 09/23/17 Onset Time: 05:00 Duration: Minutes:, Getting Worse, Intermittent Location: Reports: Generalized Bilateral Abdominal Pain Score (Numeric/FACES): 6 Left Lower Abdomen Pain Score (Numeric/FACES): 6 - Related Data Allergies Allergy/AdvReac Type Severity Reaction Status Date / Time aspirin Allergy Cannot Verified 09/17/17 19:10 Remember NSAIDS (Non-Steroidal Allergy Stomach Verified 09/17/17 19:10 Anti-Inflamma Upset Penicillins Allergy Hives Verified 09/17/17 19:10 red dye Allergy Hives Uncoded 09/17/17 19:10 Home Meds: Home Meds Acetaminophen [Acephen] 650 mg RC Q4HR PRN 12/13/16 [History] Calcium Carbonate/Vitamin D3 [Calcium 500-Vit D3 200 Tablet] 1 tab PO DAILY [History] Clopidogrel [Plavix] 75 mg PO DAILY 12/13/16 [History] Folic Acid 1 mg PO DAILY 12/13/16 [History] Loratadine 10 mg PO DAILY 12/13/16 [History] Menthol [Biofreeze] 1 applic TP BID PRN 12/13/16 [History] Menthol [Cough Drops] 5 mg PO ASDIRECTED PRN 12/13/16 [History] Methotrexate 20 mg PO TU@0800 12/13/16 [History] Teriparatide [Forteo] 20 mcg SQ DAILY 12/13/16 [History] guaiFENesin [Robitussin] 200 mg PO Q4HR PRN 12/13/16 [History] Albuterol/Ipratropium [DuoNeb 3.0-0.5 MG/3 ML] 3 ml INH QID 09/17/17 [History] Bifidobacterium Infantis [Align] 4 mg PO 1200 09/17/17 [History] Bisacodyl [Dulcolax] 10 mg RC Q72H PRN 09/17/17 [History] DULoxetine [Cymbalta] 60 mg PO DAILY 09/17/17 [History] Morphine [MS Contin] 15 mg PO BID 09/17/17 [History] Multivit-Min/FA/Lycopene/Lut [Certavite Sr-Antioxidant Tab] 1 tab PO DAILY 09/17 [History] Sennosides/Docusate Sodium [Senna S Tablet] 1 each PO BID 09/17/17 [History] oxyCODONE HCl [Oxycodone HCl] 5 mg PO BID PRN 09/17/17 [History] Acetaminophen [Tylenol] 650 mg PO Q4H PRN 09/18/17 [History] Calcium Carbonate [Tums] 1,000 mg PO Q4H PRN 09/18/17 [History] Gabapentin [Neurontin] 600 mg PO QID 09/18/17 [History] Magnesium Hydroxide [Milk of Magnesia] 30 ml PO DAILY PRN 09/18/17 [History] Polyethylene Glycol 3350 [MiraLAX] 17 gm PO DAILY PRN 09/18/17 [History] Levofloxacin [Levaquin] 750 mg PO Q24H #12 tablet 09/19/17 [Rx] Albuterol/Ipratropium [DuoNeb 3.0-0.5 MG/3 ML] 3 ml IH QID PRN 09/23/17 [History ] Past Medical History HEENT History: Reports: Cataract, Impaired Vision Cardiovascular History: Reports: [place], Stents 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: Reports: [employer] History: Reports: Musculoskeletal History: Reports: Fracture, RA, Other (See Below) Other Musculoskeletal History: restless leg syndrome Neurological History: Reports: Headaches, Chronic - Infectious Disease History Infectious Disease History: Reports: Chicken Pox, Measles, Mumps - Past Surgical History HEENT Surgical History: Reports: Eye Surgery Musculoskeletal Surgical History: Reports: Other (See Below) Other Musculoskeletal Surgeries/Procedures:: some toe removed Social & Family History - Family History Family Medical History: Noncontributory - Tobacco Use Smoking Status *Q: Former Smoker Years of Tobacco use: 50 Packs/Tins Daily: 1 Used Tobacco, but Quit: Yes Month Tobacco Last Used: january Second Hand Smoke Exposure: No - Caffeine Use Caffeine Use: Reports: Coffee Other Caffeine Use: 2-3 - Alcohol Use Days Per Week of Alcohol Use: 0 - Recreational Drug Use Recreational Drug Use: No ED ROS GENERAL - Review of Systems Review Of Systems: Unable To Obtain ED EXAM, GENERAL - Physical Exam Exam: See Below Exam Limited By: Physical Impairment General Appearance: Lethargic, Mild Distress Eye Exam: Bilateral Eye: Other (sluggish pupils) Ears: Normal External Exam Ear Exam: Bilateral Ear: Auricle Normal Nose: Normal Inspection Throat/Mouth: Normal Inspection Head: Atraumatic, Normocephalic Neck: Normal Inspection, Supple Respiratory/Chest: Respiratory Distress, Decreased Breath Sounds, Wheezing Cardiovascular: Regular Rate, Rhythm, Bradycardia Peripheral Pulses: 1+: Femoral (L), Femoral (R) GI/Abdominal: Normal Bowel Sounds (Female) Exam: Deferred Rectal (Female) Exam: Deferred Back Exam: Other Extremities: Other (mottlet) Neurological: Slow to Respond Psychiatric: Other Skin Exam: Mottled Lymphatic: No Adenopathy Course - Vital Signs Text/Narrative:: 82 y.o.w.f DNR/DNI was d/c'd from this hospital a few days ago. Pt was admitted for pneumonia. Pt was not responing at the [place]. Daughter wanted her to be seen in the ed. Pt had mottled extr. was in resp distress. RR20 BP 120/78 Pulse PE: Pt's resp distress got worse, Family arrive, did not want have comfort care only. Impression: Pneumonia, Wheezing, End of live stage Tx: Duoneb, Levoquin Plan: Admit to [facility], Dr. Farfan accepted the admission Last Recorded V/S: Last Vital Signs Temp 36.3 C 09/24/17 11:14 Pulse 96 09/24/17 11:14 Resp 20 09/24/17 11:14 BP 104/63 09/24/17 11:14 Pulse Ox 88 L 09/24/17 11:14 - Orders/Labs/Meds Orders: Active Orders 24 hr Category Date Time Status Insert Batista Catheter [Insert Urinary Catheter] [OM.PC] Care 09/23/17 17:00 Ordered Q24H Urinary Catheter Assessment [RC] 08,16,00 Care 09/23/17 16:59 Active Adult Diet [DIET] Diet 09/23/17 Dinner Active B-TYPE NATRIURETIC PEPTIDE,BNP [CHEM] AM Lab 09/25/17 05:11 Ordered BASIC METABOLIC PANEL,BMP [CHEM] AM Lab 09/25/17 05:11 Ordered CBC WITH AUTO DIFF [HEME] AM Lab 09/25/17 05:11 Ordered LEGIONELLA,PNEUMO AG URINE [REF] Routine Lab 09/23/17 11:25 Ordered VANCOMYCIN TROUGH [CHEM] Timed Lab 09/25/17 08:30 Ordered Acetaminophen [Tylenol] Med 09/24/17 08:16 Active 650 mg PO Q4H PRN Albuterol/Ipratropium [DuoNeb 3.0-0.5 MG/3 ML] Med 09/24/17 08:16 Active 3 ml INH QID PRN Bisacodyl [Dulcolax] Med 09/24/17 08:16 Active 10 mg RECTAL Q72H PRN DULoxetine [Cymbalta] Med 09/24/17 09:00 Active 60 mg PO DAILY Docusate Sodium/Sennosides [Senna Plus] Med 09/24/17 09:00 Active 1 tab PO BID Furosemide [Lasix] Med 09/24/17 09:00 Active 20 mg IVPUSH BID Magnesium Hydroxide [Milk of Magnesia] Med 09/24/17 08:16 Active 30 ml PO DAILY PRN Menthol [Cough Drops] Med 09/24/17 08:16 Active 5 mg PO ASDIRECTED PRN Menthol [Perform Pain Reliever] Med 09/24/17 08:16 Active 0 ml TP BID PRN Methotrexate Med 09/24/17 10:00 Active 20 mg PO TU@0800 Morphine [MS Contin] Med 09/24/17 09:00 Active 15 mg PO BID Polyethylene Glycol 3350 [MiraLAX] Med 09/24/17 08:16 Active 17 gm PO DAILY PRN Saccharomyces Boulardii [Florastor] Med 09/24/17 12:00 Active 250 mg PO 1200 Sodium Chloride 0.9% [Normal Saline] 250 ml Med 09/23/17 12:00 Active IV ASDIRECTED Teriparatide [Forteo] Med 09/24/17 09:00 Active 20 mcg SUBCUT DAILY Vancomycin 1,000 mg Med 09/24/17 09:00 Active Sodium Chloride 0.9% [Normal Saline] 250 ml IV Q12H Vancomycin Pharmacy to Dose [Pharmacy to Dose - Med 09/24/17 09:00 Pending Vancomycin] 1 dose .XX ASDIRECTED oxyCODONE Med 09/24/17 08:16 Active 5 mg PO BID PRN Medication Orders Acetaminophen (Tylenol) 650 mg PO Q4H PRN PRN Reason: Pain/Fever Albuterol/Ipratropium (Duoneb 3.0-0.5 Mg/3 Ml) 3 ml INH QID PRN PRN Reason: SOB/WHEEZING Bisacodyl (Dulcolax) 10 mg RECTAL Q72H PRN PRN Reason: Constipation Duloxetine HCl (Cymbalta) 60 mg PO DAILY [facility] Last Admin: 09/24/17 10:00 Dose: 60 mg Furosemide (Lasix) 20 mg IVPUSH BID [facility] Last Admin: 09/24/17 10:28 Dose: 20 mg Sodium Chloride (Normal Saline) 250 mls @ 100 mls/hr IV ASDIRECTED [facility] Last Admin: 09/23/17 18:43 Dose: 100 mls/hr Vancomycin HCl 1,000 mg/ (Sodium Chloride) 250 mls @ 250 mls/hr IV Q12H [facility] Last Admin: 09/24/17 09:55 Dose: 250 mls/hr Ceftriaxone Sodium 1,000 mg/ (Sodium Chloride) 50 mls @ 100 mls/hr IV Q24H [facility] Levofloxacin/Dextrose 750 mg/ (Premix) 150 mls @ 100 mls/hr IV Q24H [facility] Magnesium Hydroxide (Milk Of Magnesia) 30 ml PO DAILY PRN PRN Reason: Constipation Menthol (Perform Pain Reliever) 0 ml TP BID PRN PRN Reason: ARTHRITIS Methotrexate (Methotrexate) 20 mg PO TU@0800 [facility] Last Admin: 09/24/17 10:03 Dose: 20 mg Morphine Sulfate (Ms Contin) 15 mg PO BID [facility] Last Admin: 09/24/17 10:11 Dose: 15 mg Non-Formulary Medication (Menthol [Cough Drops]) 5 mg PO ASDIRECTED PRN PRN Reason: Cough Oxycodone HCl (Oxycodone) 5 mg PO BID PRN PRN Reason: Pain Polyethylene Glycol (Miralax) 17 gm PO DAILY PRN PRN Reason: Constipation Saccharomyces Boulardii (Florastor) 250 mg PO 1200 [facility] Senna/Docusate Sodium (Senna Plus) 1 tab PO BID [facility] Last Admin: 09/24/17 10:03 Dose: 1 tab Sodium Chloride (Saline Flush) 10 ml FLUSH ASDIRECTED PRN PRN Reason: Keep Vein Open Last Admin: 09/24/17 10:31 Dose: 10 ml Admin: 09/24/17 09:49 Dose: 10 ml Admin: 09/23/17 23:06 Dose: 10 ml Admin: 09/23/17 20:04 Dose: 10 ml Admin: 09/23/17 18:43 Dose: 10 ml Admin: 09/23/17 10:50 Dose: 10 ml Admin: 09/23/17 08:53 Dose: 10 ml Teriparatide Acetate (Forteo) 20 mcg SUBCUT DAILY [facility] Last Admin: 09/24/17 10:01 Dose: 20 mcg Vancomycin HCl (Pharmacy To Dose - Vancomycin) 1 dose .XX ASDIRECTED [facility] Labs: Laboratory Tests 09/23/17 09/23/17 09/23/17 Range/Units 09:05 09:05 09:05 WBC 14.6 H (4.5-12.0) X10-3/uL RBC 4.01 (3.23-5.20) x10(6)uL Hgb 12.2 (11.5-15.5) g/dL Hct 37.8 (30.0-51.3) % MCV 94.3 (80-96) fL MCH 30.4 (27.7-33.6) pg MCHC 32.2 (32.2-35.4) g/dL RDW 16.7 H (11.5-15.5) % Plt Count 374 H (125-369) X10(3)uL MPV 6.2 L (7.4-10.4) fL Neut % (Auto) 74.2 (46-82) % Lymph % (Auto) 20.9 (13-37) % Wayne % (Auto) 4.2 (4-12) % Eos % (Auto) 0 L (1.0-5.0) % Baso % (Auto) 0 (0-2) % Neut # (Auto) 10.8 H (1.6-8.3) # Lymph # (Auto) 3.1 (0.6-5.0) # Wayne # (Auto) 0.6 (0.0-1.3) # Eos # (Auto) 0.1 (0.0-0.8) # Baso # (Auto) 0.0 (0.0-0.2) # PT 12.5 H (8.7-11.1) INR 1.23 H (0.89-1.13) Sodium 134 L (135-145) mmol/L Potassium 4.6 (3.5-5.3) mmol/L Chloride 97 L (100-110) mmol/L Carbon Dioxide 23 (23-29) mmol/L BUN 11 (8-23) mg/dL Creatinine 0.7 (0.6-1.3) mg/dL Est Cr Clr Drug Dosing TNP Estimated GFR (MDRD) > 60 (>60) BUN/Creatinine Ratio 15.7 (9-20) Glucose 170 H D (80-116) mg/dL Lactic Acid (0.5-2.2) mmol/L Calcium 10.1 (8.6-10.2) mg/dL Urine Color (YELLOW) Urine Appearance (CLEAR) Urine pH (5.0-6.5) Ur Specific [place] (1.010-1.025) Urine Protein (NEGATIVE) mg/dL Urine Glucose (UA) (NEGATIVE) mg/dL Urine Ketones (NEGATIVE) mg/dL Urine Occult Blood (NEGATIVE) Urine Nitrite (NEGATIVE) Urine Bilirubin (NEGATIVE) Urine Urobilinogen (NEGATIVE) mg/dL Ur Leukocyte Esterase (NEGATIVE) Urine RBC (0) Urine WBC (0) Ur Squamous Epith Cells (NS,R,O) Urine Bacteria (NS) Hyaline Casts (NS) 09/23/17 09/23/17 Range/Units 09:05 18:25 WBC (4.5-12.0) X10-3/uL RBC (3.23-5.20) x10(6)uL Hgb (11.5-15.5) g/dL Hct (30.0-51.3) % MCV (80-96) fL MCH (27.7-33.6) pg MCHC (32.2-35.4) g/dL RDW (11.5-15.5) % Plt Count (125-369) X10(3)uL MPV (7.4-10.4) fL Neut % (Auto) (46-82) % Lymph % (Auto) (13-37) % Wayne % (Auto) (4-12) % Eos % (Auto) (1.0-5.0) % Baso % (Auto) (0-2) % Neut # (Auto) (1.6-8.3) # Lymph # (Auto) (0.6-5.0) # Wayne # (Auto) (0.0-1.3) # Eos # (Auto) (0.0-0.8) # Baso # (Auto) (0.0-0.2) # PT (8.7-11.1) INR (0.89-1.13) Sodium (135-145) mmol/L Potassium (3.5-5.3) mmol/L Chloride (100-110) mmol/L Carbon Dioxide (23-29) mmol/L BUN (8-23) mg/dL Creatinine (0.6-1.3) mg/dL Est Cr Clr Drug Dosing Estimated GFR (MDRD) (>60) BUN/Creatinine Ratio (9-20) Glucose (80-116) mg/dL Lactic Acid 2.4 H (0.5-2.2) mmol/L Calcium (8.6-10.2) mg/dL Urine Color Brown (YELLOW) Urine Appearance Clear (CLEAR) Urine pH 5.0 (5.0-6.5) Ur Specific [place] 1.020 (1.010-1.025) Urine Protein Negative (NEGATIVE) mg/dL Urine Glucose (UA) Normal (NEGATIVE) mg/dL Urine Ketones 15 H (NEGATIVE) mg/dL Urine Occult Blood Negative (NEGATIVE) Urine Nitrite Negative (NEGATIVE) Urine Bilirubin Small H (NEGATIVE) Urine Urobilinogen 1 H (NEGATIVE) mg/dL Ur Leukocyte Esterase Small H (NEGATIVE) Urine RBC 0-5 (0) Urine WBC 0-5 (0) Ur Squamous Epith Cells Occasional (NS,R,O) Urine Bacteria Rare H (NS) Hyaline Casts Few H (NS) Meds: Medications Generic Name Dose Route Start Last Admin Trade Name Freq PRN Reason Stop Dose Admin Acetaminophen 650 mg 09/24/17 08:16 Tylenol PO Q4H PRN Pain/Fever Albuterol/Ipratropium 3 ml 09/24/17 08:16 Duoneb 3.0-0.5 Mg/3 Ml INH QID PRN SOB/WHEEZING Bisacodyl 10 mg 09/24/17 08:16 Dulcolax RECTAL Q72H PRN Constipation Duloxetine HCl 60 mg 09/24/17 09:00 09/24/17 10:00 Cymbalta PO 60 mg DAILY [facility] Administration Furosemide 20 mg 09/24/17 09:00 09/24/17 10:28 Lasix IVPUSH 20 mg BID DONAL Administration Sodium Chloride 250 mls @ 100 mls/hr 09/23/17 12:00 09/23/17 18:43 Normal Saline IV 100 mls/hr ASDIRECTED [facility]AL Administration Vancomycin HCl 1,000 mg/ 250 mls @ 250 mls/hr 09/24/17 09:00 09/24/17 09:55 Sodium Chloride IV 250 mls/hr Q12H [facility] Administration Ceftriaxone Sodium 1,000 mg/ 50 mls @ 100 mls/hr 09/24/17 12:00 Sodium Chloride IV Q24H [facility]AL Levofloxacin/Dextrose 750 mg/ 150 mls @ 100 mls/hr 09/24/17 12:30 Premix IV Q24H DONAL Magnesium Hydroxide 30 ml 09/24/17 08:16 Milk Of Magnesia PO DAILY PRN Constipation Menthol 0 ml 09/24/17 08:16 Perform Pain Reliever TP BID PRN ARTHRITIS Methotrexate 20 mg 09/24/17 10:00 09/24/17 10:03 Methotrexate PO 20 mg TU@0800 [facility] Administration Morphine Sulfate 15 mg 09/24/17 09:00 09/24/17 10:11 Ms Contin PO 15 mg BID [facility] Administration Non-Formulary Medication 5 mg 09/24/17 08:16 Menthol [Cough Drops] PO ASDIRECTED PRN Cough Oxycodone HCl 5 mg 09/24/17 08:16 Oxycodone PO BID PRN Pain Polyethylene Glycol 17 gm 09/24/17 08:16 Miralax PO DAILY PRN Constipation Saccharomyces Boulardii 250 mg 09/24/17 12:00 Florastor PO 1200 [facility]AL Senna/Docusate Sodium 1 tab 09/24/17 09:00 09/24/17 10:03 Senna Plus PO 1 tab BID [facility] Administration Sodium Chloride 10 ml 09/23/17 08:51 09/24/17 10:31 Saline Flush FLUSH 10 ml ASDIRECTED PRN Administration Keep Vein Open Teriparatide Acetate 20 mcg 09/24/17 09:00 09/24/17 10:01 Forteo SUBCUT 20 mcg DAILY [facility] Administration Vancomycin HCl 1 dose 09/24/17 09:00 Pharmacy To Dose - Vancomycin .XX ASDIRECTED [facility]AL Discontinued Medications Generic Name Dose Route Start Last Admin Trade Name Freq PRN Reason Stop Dose Admin Albuterol/Ipratropium 3 ml 09/23/17 08:46 09/23/17 08:50 Duoneb 3.0-0.5 Mg/3 Ml NEB 09/23/17 08:47 3 ml ONETIME ONE Administration Furosemide 40 mg 09/23/17 20:00 09/23/17 20:03 Lasix IVPUSH 09/23/17 20:01 40 mg NOW ONE Administration Levofloxacin/Dextrose 750 mg/ 150 mls @ 100 mls/hr 09/23/17 09:20 09/23/17 09 :36 Premix IV 09/23/17 10:49 100 mls/hr ONETIME ONE Administration Sodium Chloride 500 mls @ 999 mls/hr 09/23/17 09:21 09/23/17 09:36 Normal Saline IV 09/23/17 09:51 400 mls/hr .BOLUS ONE Administration Vancomycin HCl 1,000 mg/ 250 mls @ 167 mls/hr 09/23/17 18:15 09/23/17 19:55 Sodium Chloride IV 09/23/17 19:44 167 mls/hr ONETIME ONE Administration Piperacillin Sod/Tazobactam 50 mls @ 100 mls/hr 09/23/17 20:00 09/23/17 22:09 Sod 3.375 gm/ Sodium Chloride IV 09/23/17 20:29 100 mls/hr ONETIME ONE Administration Levofloxacin/Dextrose 750 mg/ 150 mls @ 100 mls/hr 09/24/17 10:00 Premix IV Q24H DONAL Vancomycin HCl Confirm 09/23/17 18:35 09/23/17 19:56 Vancomycin Administered 09/23/17 18:36 Not Given Dose 1,000 mg .ROUTE .STK-MED ONE Departure - Departure Time of Disposition: 17:00 Disposition: Refer to Observation Condition: Critical Clinical Impression: Comfort measures only status Pneumonia Qualifiers: Pneumonia type: due to unspecified organism Laterality: right Lung location: upper lobe of lung Qualified Code(s): J18.1 - Lobar pneumonia, unspecified organism - Discharge Information
[2017-09-23] MEDS ORDERED: Levofloxacin/Dextrose 5%-Water 750 MG in Premix Bag 1 BAG IV ONE (09:20)
[2017-09-23] MEDS ORDERED: Sodium Chloride 0.9% 500 ML IV ONE (09:21)
--- NOTE | 2017-09-23 13:47 | CR ---
INDICATION: Follow-up pneumonia. CHEST: An AP portable upright view of the chest 09/23/2017 was compared with and 08/19/2017, revealing continued evidence of CHF with increasing infiltration in the right mid to upper lung field and continued infiltration suggested at the left lower lobe. Pleural effusion is suggested also on the right and appears increased significantly. Poor inspiration is noted, further emphasizing markings as previously. IMPRESSION: 1. Continued CHF and interstitial lung edema. 2. Increasing infiltration in the right mid lung field and possibly the left lung base. Findings may be on the basis of acute pulmonary edema and/or superimposed pneumonia with pleural effusion also on the right compatible with CHF or possibly pleuritis and appearing increased compared with the previous study. MTDD
--- NOTE | 2017-09-23 16:51 | PCM.HP ---
H&P History of Present Illness - General Date of Service: 09/23/17 Source of Information: Patient, Family, Old Records History Limitations: Reports: No Limitations - History of Present Illness Initial Comments - Free Text/Narative: 82-year-old female [facility] the [facility] by [facility]. She was found unresponsive in her bed. This happened this morning. She's from the intermediate , was recently admitted here for hypoxia and pneumonia. She was discharged just last week. Has history of rheumatoid arthritis with chronic pain syndrome, on chronic opiate therapy. She also has a history of a dependence, chronic constipation previously stable. According to the family she was electively well under the usual state of health until this morning. Emergency room she was found to severe hypoxia needing 12 L of oxygenation by nasal cannula to maintain oxygen levels. She complains of feeling short of breath when I was able to arouse her, but no fever chills nausea vomiting. History of CAD, stent placement unclear timing. Bilateral Abdominal Pain Score (Numeric/FACES): 6 - Related Data Allergies/Adverse Reactions: Allergies Allergy/AdvReac Type Severity Reaction Status Date / Time aspirin Allergy Cannot Verified 09/17/17 19:10 Remember NSAIDS (Non-Steroidal Allergy Stomach Verified 09/17/17 19:10 Anti-Inflamma Upset Penicillins Allergy Hives Verified 09/17/17 19:10 red dye Allergy Hives Uncoded 09/17/17 19:10 Home Medications: Home Meds Acetaminophen [Acephen] 650 mg RC Q4HR PRN 12/13/16 [History] Calcium Carbonate/Vitamin D3 [Calcium 500-Vit D3 200 Tablet] 1 tab PO DAILY [History] Clopidogrel [Plavix] 75 mg PO DAILY 12/13/16 [History] Folic Acid 1 mg PO DAILY 12/13/16 [History] Loratadine 10 mg PO DAILY 12/13/16 [History] Menthol [Biofreeze] 1 applic TP BID PRN 12/13/16 [History] Menthol [Cough Drops] 5 mg PO ASDIRECTED PRN 12/13/16 [History] Methotrexate 20 mg PO TU@0800 12/13/16 [History] Teriparatide [Forteo] 20 mcg SQ DAILY 12/13/16 [History] guaiFENesin [Robitussin] 200 mg PO Q4HR PRN 12/13/16 [History] Albuterol/Ipratropium [DuoNeb 3.0-0.5 MG/3 ML] 3 ml INH QID 09/17/17 [History] Bifidobacterium Infantis [Align] 4 mg PO 1200 09/17/17 [History] Bisacodyl [Dulcolax] 10 mg RC Q72H PRN 09/17/17 [History] DULoxetine [Cymbalta] 60 mg PO DAILY 09/17/17 [History] Morphine [MS Contin] 15 mg PO BID 09/17/17 [History] Multivit-Min/FA/Lycopene/Lut [Certavite Sr-Antioxidant Tab] 1 tab PO DAILY 09/17 [History] Sennosides/Docusate Sodium [Senna S Tablet] 1 each PO BID 09/17/17 [History] oxyCODONE HCl [Oxycodone HCl] 5 mg PO BID PRN 09/17/17 [History] Acetaminophen [Tylenol] 650 mg PO Q4H PRN 09/18/17 [History] Calcium Carbonate [Tums] 1,000 mg PO Q4H PRN 09/18/17 [History] Gabapentin [Neurontin] 600 mg PO QID 09/18/17 [History] Magnesium Hydroxide [Milk of Magnesia] 30 ml PO DAILY PRN 09/18/17 [History] Polyethylene Glycol 3350 [MiraLAX] 17 gm PO DAILY PRN 09/18/17 [History] Levofloxacin [Levaquin] 750 mg PO Q24H #12 tablet 09/19/17 [Rx] Albuterol/Ipratropium [DuoNeb 3.0-0.5 MG/3 ML] 3 ml IH QID PRN 09/23/17 [History ] Past Medical History HEENT History: Reports: Cataract, Impaired Vision Cardiovascular History: 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, Stents Respiratory History: Reports: Pneumonia, Recurrent 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: Reports: Chronic Constipation, [employer] History: Reports: Musculoskeletal History: Reports: Fracture, RA, Other (See Below) Other Musculoskeletal History: restless leg syndrome Neurological History: Reports: Headaches, Chronic - Infectious Disease History Infectious Disease History: Reports: Chicken Pox, Measles, Mumps - Past Surgical History HEENT Surgical History: Reports: Eye Surgery Musculoskeletal Surgical History: Reports: Other (See Below) Other Musculoskeletal Surgeries/Procedures:: some toe removed Social & Family History - Family History Family Medical History: Noncontributory - Tobacco Use Smoking Status *Q: Former Smoker Years of Tobacco use: 50 Packs/Tins Daily: 1 Used Tobacco, but Quit: Yes Month 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 Exam - Exam Exam: See Below - Vital Signs Vital Signs: Last Vital Signs Temp 97.9 F 09/23/17 11:15 Pulse 112 H 09/23/17 11:15 Resp 24 H 09/23/17 11:15 BP 91/52 L 09/23/17 11:15 Pulse Ox 91 L 09/23/17 12:58 Weight: 56.563 kg - Exam Quality Assessment: Supplemental Oxygen, DVT Prophylaxis General: Alert, Lethargic HEENT: PERRLA, Hearing Intact, Mucosa Moist & [place], Nares Patent, Normal Nasal Septum, Posterior Pharynx Clear, Conjunctiva Clear, EOMI, EACs Clear, TMs Clear Neck: Supple Lungs: Decreased Breath Sounds, Rales GI/Abdominal Exam: Normal Bowel Sounds, Soft, Non-Tender, No Organomegaly, No Distention, No Abnormal Bruit, No Mass, Pelvis Stable Back Exam: Normal Inspection, Full Range of Motion, NT Extremities: Normal Inspection, Normal Range of Motion, Non-Tender, No Pedal Edema, Normal Capillary Refill Skin: Warm, Dry, Intact Neurological: Cranial Nerves Intact, Reflexes Equal Bilateral Neuro Extensive - Mental Status: Alert, Oriented x3, Normal Mood/Affect, Normal Cognition Neuro Extensive - Motor, Sensory, Reflexes: CN II-XII Intact Psychiatric: Alert, Normal Affect, Normal Mood - Patient Data Result Diagrams: 09/23/17 09:05 09/23/17 09:05 *Q Meaningful Use (ADM) - VTE *Q VTE Criteria *Q: - Stroke *Q Stroke Criteria *Q: - AMI *Q AMI Criteria *Q: - Problem List (1) CHF (congestive heart failure) SNOMED Code(s): 11121631 ICD Code: I50.9 - HEART FAILURE, UNSPECIFIED Status: Acute Current Visit : Yes Qualifiers: Congestive heart failure type: unspecified congestive heart failure type Congestive heart failure chronicity: acute on chronic Qualified Code(s): I50.9 - Heart failure, unspecified (2) Lethargic SNOMED Code(s): 881436937 ICD Code: R53.83 - OTHER FATIGUE Status: Acute Current Visit: Yes (3) Palliative care status SNOMED Code(s): 550991633 ICD Code: Z51.5 - ENCOUNTER FOR PALLIATIVE CARE Status: Acute Current Visit: Yes (4) Hypoxia SNOMED Code(s): 775392417 ICD Code: R09.02 - HYPOXEMIA Status: Acute Current Visit: No (5) Pneumonia SNOMED Code(s): 219650477 ICD Code: J18.9 - PNEUMONIA, UNSPECIFIED ORGANISM Status: Acute Current Visit: No Qualifiers: Pneumonia type: due to unspecified organism Laterality: right Lung location: upper lobe of lung Qualified Code(s): J18.1 - Lobar pneumonia, unspecified organism (6) Rheumatoid arthritis SNOMED Code(s): 04285495 ICD Code: M06.9 - RHEUMATOID ARTHRITIS, UNSPECIFIED Status: Acute Current Visit: Yes Qualifiers: Laterality: unspecified laterality (7) Chronic, continuous use of opioids SNOMED Code(s): 862210948 ICD Code: F11.90 - OPIOID USE, UNSPECIFIED, UNCOMPLICATED Status: Acute Current Visit: Yes (8) Constipation due to opioid therapy SNOMED Code(s): 206558143262112 ICD Code: K59.03 - DRUG INDUCED CONSTIPATION; T40.2X5A - ADVERSE EFFECT OF OTHER OPIOIDS, INITIAL ENCOUNTER Status: Acute Current Visit: Yes (9) CAD (coronary artery disease) SNOMED Code(s): 73162639 ICD Code: I25.10 - ATHSCL HEART DISEASE OF [place] CORONARY ARTERY W/O ANG PCTRS Status: Acute Current Visit: Yes Qualifiers: Coronary Disease-Associated Artery/Lesion type: [place] artery Associated angina: angina presence unspecified Problem List Initiated/Reviewed/Updated: Yes Orders Last 24hrs: Active Orders 24 hr Category Date Time Status LEGIONELLA,PNEUMO AG URINE [REF] Routine Lab 09/23/17 11:25 Ordered Sodium Chloride 0.9% [Normal Saline] 250 ml Med 09/23/17 12:00 Active IV ASDIRECTED Medication Orders Sodium Chloride (Normal Saline) 250 mls @ 100 mls/hr IV ASDIRECTED DONAL Sodium Chloride (Saline Flush) 10 ml FLUSH ASDIRECTED PRN PRN Reason: Keep Vein Open Last Admin: 09/23/17 10:50 Dose: 10 ml Admin: 09/23/17 08:53 Dose: 10 ml Assessment/Plan Comment:: Admit patient, who most likely has hospitalization pneumonia, and congestive heart failure severe. We'll continue oxygen supplementation, Lasix and triple antibiotic therapy.
[2017-09-23] MEDS: Sodium Chloride 0.9% 250 ML IV SCH (18:43)
[2017-09-23] MEDS: Vancomycin 1,000 MG SDV ONE ×2 (18:43→19:56)
[2017-09-23] MEDS ORDERED: Furosemide 40 MG/4 ML VIAL IVPUSH ONE (20:00)
[2017-09-23] MEDS ORDERED: Piperacillin/Tazobactam 3.375 GM in Sodium Chloride 0.9% 50 ML IV ONE (20:00)
[2017-09-24] MEDS ORDERED: Bisacodyl 10 MG Supp RECTAL PRN (08:16)
[2017-09-24] MEDS ORDERED: MENTHOL 5 MG PO PRN (08:16)
[2017-09-24] MEDS ORDERED: Magnesium Hydroxide 400 MG/5 ML Susp 30 ML Cup PO PRN (08:16)
[2017-09-24] MEDS ORDERED: oxyCODONE 5 MG Tab PO PRN (08:16)
[2017-09-24] MEDS ORDERED: Perform Pain Reliever Gel 89 ML Tube TP PRN (08:16)
[2017-09-24] MEDS ORDERED: Polyethylene Glycol 3350 Powder 17 GM Packet PO PRN (08:16)
--- NOTE | 2017-09-24 08:27 | PCM.PN ---
- General Info Date of Service: 09/24/17 Subjective Update: Patient has been noted to be awake and talking. But still needs high levels of oxygenation by nasal cannula. Complains of some left lower quadrant abdominal pain mild, and constipation. Denies vomiting chest pain fever. - Patient Data Vitals - Most Recent: Last Vital Signs Temp 97.9 F 09/24/17 07:56 Pulse 90 09/24/17 07:56 Resp 22 H 09/24/17 07:56 BP 107/64 09/24/17 07:56 Pulse Ox 89 L 09/24/17 07:56 Weight - Most Recent: 56.563 kg I&O - Last 24 Hours: Intake & Output 09/23/17 09/24/17 09/24/17 22:59 06:59 14:59 Intake Total 280 180 Output Total 850 750 Balance -570 -570 Lab Results Last 24 Hours: Laboratory Results - last 24 hr 09/23/17 Range/Units 18:25 Urine Color Brown (YELLOW) Urine Appearance Clear (CLEAR) Urine pH 5.0 (5.0-6.5) Ur Specific [place] 1.020 (1.010-1.025) Urine Protein Negative (NEGATIVE) mg/dL Urine Glucose (UA) Normal (NEGATIVE) mg/dL Urine Ketones 15 H (NEGATIVE) mg/dL Urine Occult Blood Negative (NEGATIVE) Urine Nitrite Negative (NEGATIVE) Urine Bilirubin Small H (NEGATIVE) Urine Urobilinogen 1 H (NEGATIVE) mg/dL Ur Leukocyte Esterase Small H (NEGATIVE) Urine RBC 0-5 (0) Urine WBC 0-5 (0) Ur Squamous Epith Cells Occasional (NS,R,O) Urine Bacteria Rare H (NS) Hyaline Casts Few H (NS) Med Orders - Current: Current Medications Acetaminophen (Tylenol) 650 mg PO Q4H PRN PRN Reason: Pain/Fever Albuterol/Ipratropium (Duoneb 3.0-0.5 Mg/3 Ml) 3 ml INH QID PRN PRN Reason: SOB/WHEEZING Bisacodyl (Dulcolax) 10 mg RECTAL Q72H PRN PRN Reason: Constipation Duloxetine HCl (Cymbalta) 60 mg PO DAILY DONAL Sodium Chloride (Normal Saline) 250 mls @ 100 mls/hr IV ASDIRECTED [facility] Last Admin: 09/23/17 18:43 Dose: 100 mls/hr Magnesium Hydroxide (Milk Of Magnesia) 30 ml PO DAILY PRN PRN Reason: Constipation Methotrexate (Methotrexate) 20 mg PO TU@0800 DONAL Morphine Sulfate (Ms Contin) 15 mg PO BID DONAL Non-Formulary Medication (Bifidobacterium Infantis [Align]) 4 mg PO 1200 [facility] Non-Formulary Medication (Menthol [Biofreeze]) 1 applic TP BID PRN PRN Reason: ARTHRITIS Non-Formulary Medication (Menthol [Cough Drops]) 5 mg PO ASDIRECTED PRN PRN Reason: Cough Oxycodone HCl (Oxycodone) 5 mg PO BID PRN PRN Reason: Pain Polyethylene Glycol (Miralax) 17 gm PO DAILY PRN PRN Reason: Constipation Senna/Docusate Sodium (Senna Plus) tab PO BID [facility] Sodium Chloride (Saline Flush) 10 ml FLUSH ASDIRECTED PRN PRN Reason: Keep Vein Open Last Admin: 09/23/17 23:06 Dose: 10 ml Teriparatide Acetate (Forteo) 20 mcg SUBCUT DAILY [facility] Discontinued Medications Albuterol/Ipratropium (Duoneb 3.0-0.5 Mg/3 Ml) 3 ml NEB ONETIME ONE Stop: 09/23/17 08:47 Last Admin: 09/23/17 08:50 Dose: 3 ml Furosemide (Lasix) 40 mg IVPUSH NOW ONE Stop: 09/23/17 20:01 Last Admin: 09/23/17 20:03 Dose: 40 mg Levofloxacin/Dextrose 750 mg/ (Premix) 150 mls @ 100 mls/hr IV ONETIME ONE Stop: 09/23/17 10:49 Last Admin: 09/23/17 09:36 Dose: 100 mls/hr Sodium Chloride (Normal Saline) 500 mls @ 999 mls/hr IV .BOLUS ONE Stop: 09/23/17 09:51 Last Admin: 09/23/17 09:36 Dose: 400 mls/hr Vancomycin HCl 1,000 mg/ (Sodium Chloride) 250 mls @ 167 mls/hr IV ONETIME ONE Stop: 09/23/17 19:44 Last Admin: 09/23/17 19:55 Dose: 167 mls/hr Piperacillin Sod/Tazobactam (Sod 3.375 gm/ Sodium Chloride) 50 mls @ 100 mls/ hr IV ONETIME ONE Stop: 09/23/17 20:29 Last Admin: 09/23/17 22:09 Dose: 100 mls/hr Vancomycin HCl (Vancomycin) Confirm Administered Dose 1,000 mg .ROUTE .STK-MED ONE Stop: 09/23/17 18:36 Last Admin: 09/23/17 19:56 Dose: Not Given - Exam Quality Assessment: Supplemental Oxygen General: Alert HEENT: Pupils Equal Neck: Supple Lungs: Decreased Breath Sounds, Rales Psy/Mental Status: Alert, Depressed - Problem List & Annotations (1) CHF (congestive heart failure) SNOMED Code(s): 12496901 Code(s): I50.9 - HEART FAILURE, UNSPECIFIED Status: Acute Current Visit: Yes Qualifiers: Congestive heart failure type: unspecified congestive heart failure type Congestive heart failure chronicity: acute on chronic Qualified Code(s): I50.9 - Heart failure, unspecified (2) Lethargic SNOMED Code(s): 165947480 Code(s): R53.83 - OTHER FATIGUE Status: Acute Current Visit: Yes (3) Palliative care status SNOMED Code(s): 966306536 Code(s): Z51.5 - ENCOUNTER FOR PALLIATIVE CARE Status: Acute Current Visit: Yes (4) Hypoxia SNOMED Code(s): 097808105 Code(s): R09.02 - HYPOXEMIA Status: Acute Current Visit: No (5) Pneumonia SNOMED Code(s): 951572572 Code(s): J18.9 - PNEUMONIA, UNSPECIFIED ORGANISM Status: Acute Current Visit: No Qualifiers: Pneumonia type: due to unspecified organism Laterality: right Lung location: upper lobe of lung Qualified Code(s): J18.1 - Lobar pneumonia, unspecified organism (6) Rheumatoid arthritis SNOMED Code(s): 23687552 Code(s): M06.9 - RHEUMATOID ARTHRITIS, UNSPECIFIED Status: Acute Current Visit: Yes Qualifiers: Laterality: unspecified laterality (7) Chronic, continuous use of opioids SNOMED Code(s): 304890495 Code(s): F11.90 - OPIOID USE, UNSPECIFIED, UNCOMPLICATED Status: Acute Current Visit: Yes (8) Constipation due to opioid therapy SNOMED Code(s): 613694348716336 Code(s): K59.03 - DRUG INDUCED CONSTIPATION; T40.2X5A - ADVERSE EFFECT OF OTHER OPIOIDS, INITIAL ENCOUNTER Status: Acute Current Visit: Yes (9) CAD (coronary artery disease) SNOMED Code(s): 65724955 Code(s): I25.10 - ATHSCL HEART DISEASE OF [place] CORONARY ARTERY W/O ANG PCTRS Status: Acute Current Visit: Yes Qualifiers: Coronary Disease-Associated Artery/Lesion type: [place] artery Associated angina: angina presence unspecified - Problem List Review Problem List Initiated/Reviewed/Updated: Yes - My Orders Last 24 Hours: My Active Orders 09/23/17 11:25 LEGIONELLA,PNEUMO AG URINE [REF] Routine 09/23/17 12:00 Sodium Chloride 0.9% [Normal Saline] 250 ml IV ASDIRECTED 09/23/17 16:59 Urinary Catheter Assessment [RC] 08,,00 09/23/17 17:00 Insert [place]ista Catheter [Insert Urinary Catheter] [OM.PC] Q24H 09/23/17 Dinner Adult Diet [DIET] 09/24/17 08:16 Acetaminophen [Tylenol] 650 mg PO Q4H PRN Albuterol/Ipratropium [DuoNeb 3.0-0.5 MG/3 ML] 3 ml INH QID PRN Bisacodyl [Dulcolax] 10 mg RECTAL Q72H PRN Magnesium Hydroxide [Milk of Magnesia] 30 ml PO DAILY PRN Menthol [Biofreeze] 1 applic TP BID PRN Menthol [Cough Drops] 5 mg PO ASDIRECTED PRN Polyethylene Glycol 3350 [MiraLAX] 17 gm PO DAILY PRN oxyCODONE HCl [Oxycodone HCl] 5 mg PO BID PRN 09/24/17 08:30 Levofloxacin/Dextrose 5%-Water [Levaquin in D5W 750 MG/150 ML] 750 mg Premix Bag 1 bag IV Q24H 09/24/17 09:00 DULoxetine [Cymbalta] 60 mg PO DAILY Docusate Sodium/Sennosides [Senna Plus] 1 each PO BID Furosemide [Lasix] 20 mg IVPUSH BID Morphine [MS Contin] 15 mg PO BID Teriparatide [Forteo] 20 mcg SUBCUT DAILY Vancomycin 1,000 mg Sodium Chloride 0.9% [Normal Saline] 250 ml IV Q12H 09/24/17 12:00 Bifidobacterium Infantis [Align] 4 mg PO 1200 09/25/17 05:11 B-TYPE NATRIURETIC PEPTIDE,BNP [CHEM] AM BASIC METABOLIC PANEL,BMP [CHEM] AM CBC WITH AUTO DIFF [HEME] AM 10/01/17 08:00 Methotrexate 20 mg PO TU@0800 - Plan Plan:: Encourage frequent position changes, I S and continue with Lasix and triple antibiotic therapy. We'll repeat a BMP basic profile and CBC in the morning. I will also resumed most of the home medications, choosing to hold off on gabapentin because of altered mentation that was there yesterday.
[2017-09-24] MEDS: Sodium Chloride 0.9% 10 ML Syringe FLUSH PRN ×3 (09:49→12:30)
[2017-09-24] MEDS ORDERED: Levofloxacin/Dextrose 5%-Water 750 MG in Premix Bag 1 BAG IV SCH (10:00)
[2017-09-24] MEDS: DULoxetine 60 MG Cap PO SCH (10:00)
[2017-09-24] MEDS ORDERED: Methotrexate 2.5 MG Tab PO SCH (10:00)
[2017-09-24] MEDS: TERIPARATIDE 600 MCG/2.4 ML SUBCUT SCH (10:01)
[2017-09-24] MEDS: Morphine 15 MG Tab.ER PO SCH ×2 (10:11→20:32)
[2017-09-24] MEDS: Furosemide 20 MG/2 ML VIAL IVPUSH SCH ×2 (10:28→20:31)
[2017-09-24] MEDS: cefTRIAXone 1,000 MG in Sodium Chloride 0.9% 50 ML IV SCH (12:35)
[2017-09-24] MEDS: Saccharomyces Boulardii (Probiotic) 250 MG Cap PO SCH (12:38)
[2017-09-24] MEDS: Levofloxacin/Dextrose 5%-Water 750 MG in Premix Bag 1 BAG IV SCH (13:26)
[2017-09-24] MEDS: Sodium Chloride 0.9% 250 ML IV SCH ×2 (13:36→16:28)
[2017-09-25] MEDS: Acetaminophen 325 MG Tab PO PRN (07:56)
--- NOTE | 2017-09-25 08:49 | PCM.PN ---
- General Info Date of Service: 09/25/17 Subjective Update: More awake today, no fever has been reported. Still needing 8 L of oxygenation. Functional Status: Reports: Tolerating Diet - Review of Systems General: Reports: No Symptoms HEENT: Reports: No Symptoms Pulmonary: Reports: No Symptoms. Denies: Pleuritic Chest Pain, Cough Cardiovascular: Reports: No Symptoms - Patient Data Vitals - Most Recent: Last Vital Signs Temp 99 F 09/25/17 07:16 Pulse 103 H 09/25/17 07:16 Resp 20 09/25/17 07:16 BP 98/57 L 09/25/17 07:16 Pulse Ox 91 L 09/25/17 08:20 Weight - Most Recent: 56.563 kg I&O - Last 24 Hours: Intake & Output 09/24/17 09/25/17 09/25/17 22:59 06:59 14:59 Intake Total 250 185 150 Output Total 400 1000 Balance -150 -815 150 Med Orders - Current: Current Medications Acetaminophen (Tylenol) 650 mg PO Q4H PRN PRN Reason: Pain/Fever Last Admin: 09/25/17 07:56 Dose: 650 mg Albuterol/Ipratropium (Duoneb 3.0-0.5 Mg/3 Ml) 3 ml INH QID PRN PRN Reason: SOB/WHEEZING Bisacodyl (Dulcolax) 10 mg RECTAL Q72H PRN PRN Reason: Constipation Duloxetine HCl (Cymbalta) 60 mg PO DAILY [facility] Last Admin: 09/24/17 10:00 Dose: 60 mg Furosemide (Lasix) 20 mg IVPUSH BID [facility] Last Admin: 09/24/17 20:31 Dose: 20 mg Sodium Chloride (Normal Saline) 250 mls @ 100 mls/hr IV ASDIRECTED [facility] Last Admin: 09/24/17 16:28 Dose: 100 mls/hr Vancomycin HCl 1,000 mg/ (Sodium Chloride) 250 mls @ 250 mls/hr IV Q12H [facility] Last Admin: 09/24/17 20:24 Dose: 250 mls/hr Ceftriaxone Sodium 1,000 mg/ (Sodium Chloride) 50 mls @ 100 mls/hr IV Q24H [facility] Last Admin: 09/24/17 12:35 Dose: 100 mls/hr Levofloxacin/Dextrose 750 mg/ (Premix) 150 mls @ 100 mls/hr IV Q24H [facility] Last Admin: 09/24/17 13:26 Dose: 100 mls/hr Magnesium Hydroxide (Milk Of Magnesia) 30 ml PO DAILY PRN PRN Reason: Constipation Menthol (Perform Pain Reliever) 0 ml TP BID PRN PRN Reason: ARTHRITIS Methotrexate (Methotrexate) 20 mg PO TU@0800 [facility] Last Admin: 09/24/17 10:03 Dose: 20 mg Morphine Sulfate (Ms Contin) 15 mg PO BID [facility] Last Admin: 09/24/17 20:32 Dose: 15 mg Non-Formulary Medication (Menthol [Cough Drops]) 5 mg PO ASDIRECTED PRN PRN Reason: Cough Oxycodone HCl (Oxycodone) 5 mg PO BID PRN PRN Reason: Pain Polyethylene Glycol (Miralax) 17 gm PO DAILY PRN PRN Reason: Constipation Saccharomyces Boulardii (Florastor) 250 mg PO 1200 [facility] Last Admin: 09/24/17 12:38 Dose: 250 mg Senna/Docusate Sodium (Senna Plus) 1 tab PO BID [facility] Last Admin: 09/24/17 20:34 Dose: 1 tab Sodium Chloride (Saline Flush) 10 ml FLUSH ASDIRECTED PRN PRN Reason: Keep Vein Open Last Admin: 09/24/17 12:30 Dose: 10 ml Teriparatide Acetate (Forteo) 20 mcg SUBCUT DAILY [facility] Last Admin: 09/24/17 10:01 Dose: 20 mcg Vancomycin HCl (Pharmacy To Dose - Vancomycin) 1 dose .XX ASDIRECTED [facility] Discontinued Medications Albuterol/Ipratropium (Duoneb 3.0-0.5 Mg/3 Ml) 3 ml NEB ONETIME ONE Stop: 09/23/17 08:47 Last Admin: 09/23/17 08:50 Dose: 3 ml Furosemide (Lasix) 40 mg IVPUSH NOW ONE Stop: 09/23/17 20:01 Last Admin: 09/23/17 20:03 Dose: 40 mg Levofloxacin/Dextrose 750 mg/ (Premix) 150 mls @ 100 mls/hr IV ONETIME ONE Stop: 09/23/17 10:49 Last Admin: 09/23/17 09:36 Dose: 100 mls/hr Sodium Chloride (Normal Saline) 500 mls @ 999 mls/hr IV .BOLUS ONE Stop: 09/23/17 09:51 Last Admin: 09/23/17 09:36 Dose: 400 mls/hr Vancomycin HCl 1,000 mg/ (Sodium Chloride) 250 mls @ 167 mls/hr IV ONETIME ONE Stop: 09/23/17 19:44 Last Admin: 09/23/17 19:55 Dose: 167 mls/hr Piperacillin Sod/Tazobactam (Sod 3.375 gm/ Sodium Chloride) 50 mls @ 100 mls/ hr IV ONETIME ONE Stop: 09/23/17 20:29 Last Admin: 09/23/17 22:09 Dose: 100 mls/hr Levofloxacin/Dextrose 750 mg/ (Premix) 150 mls @ 100 mls/hr IV Q24H DONAL Vancomycin HCl (Vancomycin) Confirm Administered Dose 1,000 mg .ROUTE .STK-MED ONE Stop: 09/23/17 18:36 Last Admin: 09/23/17 19:56 Dose: Not Given - Exam Quality Assessment: Supplemental Oxygen, Restraints General: Alert, Oriented HEENT: Pupils Equal Neck: Supple Lungs: Rales Cardiovascular: Regular Rate, Regular Rhythm - Problem List & Annotations (1) CHF (congestive heart failure) SNOMED Code(s): 30256367 Code(s): I50.9 - HEART FAILURE, UNSPECIFIED Status: Acute Current Visit: Yes Qualifiers: Congestive heart failure type: unspecified congestive heart failure type Congestive heart failure chronicity: acute on chronic Qualified Code(s): I50.9 - Heart failure, unspecified (2) Lethargic SNOMED Code(s): 964035573 Code(s): R53.83 - OTHER FATIGUE Status: Acute Current Visit: Yes (3) Palliative care status SNOMED Code(s): 494306981 Code(s): Z51.5 - ENCOUNTER FOR PALLIATIVE CARE Status: Acute Current Visit: Yes (4) Hypoxia SNOMED Code(s): 518546454 Code(s): R09.02 - HYPOXEMIA Status: Acute Current Visit: No (5) Pneumonia SNOMED Code(s): 662584679 Code(s): J18.9 - PNEUMONIA, UNSPECIFIED ORGANISM Status: Acute Current Visit: Yes Qualifiers: Pneumonia type: due to unspecified organism Laterality: right Lung location: upper lobe of lung Qualified Code(s): J18.1 - Lobar pneumonia, unspecified organism (6) Rheumatoid arthritis SNOMED Code(s): 57952212 Code(s): M06.9 - RHEUMATOID ARTHRITIS, UNSPECIFIED Status: Acute Current Visit: Yes Qualifiers: Laterality: unspecified laterality (7) Chronic, continuous use of opioids SNOMED Code(s): 466121202 Code(s): F11.90 - OPIOID USE, UNSPECIFIED, UNCOMPLICATED Status: Acute Current Visit: Yes (8) Constipation due to opioid therapy SNOMED Code(s): 528415822222811 Code(s): K59.03 - DRUG INDUCED CONSTIPATION; T40.2X5A - ADVERSE EFFECT OF OTHER OPIOIDS, INITIAL ENCOUNTER Status: Acute Current Visit: Yes (9) CAD (coronary artery disease) SNOMED Code(s): 65384596 Code(s): I25.10 - ATHSCL HEART DISEASE OF [place] CORONARY ARTERY W/O ANG PCTRS Status: Acute Current Visit: Yes Qualifiers: Coronary Disease-Associated Artery/Lesion type: [place] artery Associated angina: angina presence unspecified - Problem List Review Problem List Initiated/Reviewed/Updated: Yes - My Orders Last 24 Hours: My Active Orders 09/24/17 12:30 Levofloxacin/Dextrose 5%-Water [Levaquin in D5W 750 MG/150 ML] 750 mg Premix Bag 1 bag IV Q24H 09/25/17 05:11 PRO B-TYPE NATRIUR PEPT,BNPPRO [CHEM] Routine 09/26/17 05:11 Chest 1V Frontal [CR] AM B-TYPE NATRIURETIC PEPTIDE,BNP [CHEM] AM BASIC METABOLIC PANEL,BMP [CHEM] AM - Plan Plan:: Encourage frequent position changes, I S and continue with Lasix and triple antibiotic therapy. We'll repeat a BMP basic profile and CBC in the morning. I will also resumed most of the home medications, choosing to hold off on gabapentin because of altered mentation.Wean off o2 if tolerated.
[2017-09-25] MEDS: Sodium Chloride 0.9% 250 ML IV SCH ×2 (09:10→13:30)
[2017-09-25] MEDS: DULoxetine 60 MG Cap PO SCH (09:18)
[2017-09-25] MEDS: Morphine 15 MG Tab.ER PO SCH ×2 (09:29→20:24)
[2017-09-25] MEDS: TERIPARATIDE 600 MCG/2.4 ML SUBCUT SCH (09:30)
[2017-09-25] MEDS ORDERED: Potassium Chloride 40 MEQ/20 ML SDV IV SCH (09:45)
[2017-09-25] MEDS: Furosemide 20 MG/2 ML VIAL IVPUSH SCH ×2 (09:47→20:22)
[2017-09-25] MEDS: Potassium Chloride 20 MEQ Tab.ER PO SCH ×2 (10:18→20:24)
[2017-09-25] MEDS: Potassium Chloride 10 MEQ in Premix Bag 1 BAG IV SCH ×4 (10:21→22:29)
[2017-09-25] MEDS: Saccharomyces Boulardii (Probiotic) 250 MG Cap PO SCH (12:09)
[2017-09-25] MEDS: cefTRIAXone 1,000 MG in Sodium Chloride 0.9% 50 ML IV SCH (12:35)
[2017-09-25] MEDS: Levofloxacin/Dextrose 5%-Water 750 MG in Premix Bag 1 BAG IV SCH (13:30)
[2017-09-25] MEDS: Sodium Chloride 0.9% 500 ML IV ONE (20:10)
[2017-09-26] MEDS: Potassium Chloride 10 MEQ in Premix Bag 1 BAG IV SCH ×2 (01:58→06:19)
[2017-09-26] MEDS: Sodium Chloride 0.9% 500 ML IV ONE (04:23)
[2017-09-26] MEDS: Acetaminophen 325 MG Tab PO PRN (07:37)
[2017-09-26] MEDS: Sodium Chloride 0.9% 10 ML Syringe FLUSH PRN ×2 (08:15→08:20)
[2017-09-26] MEDS: DULoxetine 60 MG Cap PO SCH (08:15)
[2017-09-26] MEDS: Potassium Chloride 20 MEQ Tab.ER PO SCH ×2 (08:15→20:36)
[2017-09-26] MEDS: Furosemide 20 MG/2 ML VIAL IVPUSH SCH ×2 (08:16→20:48)
[2017-09-26] MEDS: Morphine 15 MG Tab.ER PO SCH ×2 (08:19→20:45)
[2017-09-26] MEDS: TERIPARATIDE 600 MCG/2.4 ML SUBCUT SCH (08:20)
--- NOTE | 2017-09-26 10:24 | CR ---
INDICATION: CHF. CHEST: An AP upright view of the chest 09/26/2017, compared with 09/23/2017 and 09/17/2017, revealed decreased prominence of pulmonary vasculature and decreasing infiltration bilaterally. Findings are compatible with resolving CHF and pulmonary edema. The possibility of resolving pneumonia would also be a consideration, but should be correlated clinically. Significant amount of infiltration remains present in the area of the right upper lung field, but is significantly improved. Infiltrate at the right lung base is almost completely resolved. IMPRESSION: Significant improvement in the appearance of the chest. No new acute process. MTDD
[2017-09-26] MEDS ORDERED: Sodium Chloride 0.9% 500 ML IV ONE (10:45)
[2017-09-26] MEDS: cefTRIAXone 1,000 MG in Sodium Chloride 0.9% 50 ML IV SCH (12:15)
[2017-09-26] MEDS: Saccharomyces Boulardii (Probiotic) 250 MG Cap PO SCH (13:22)
[2017-09-26] MEDS ORDERED: Levofloxacin/Dextrose 5%-Water 750 MG in Premix Bag 1 BAG IV SCH (14:00)
--- NOTE | 2017-09-26 19:15 | PCM.PN ---
- General Info Date of Service: 09/26/17 Subjective Update: Has continued to improve in terms of oxygenation needed to keep respectable saturations. She's also more awake and conversing, and eating some, fed by her daughter. No new fever, cough or respiratory distress. Functional Status: Reports: Pain Controlled, Tolerating Diet. Denies: New Symptoms - Patient Data Vitals - Most Recent: Last Vital Signs Temp 97.5 F 09/26/17 12:20 Pulse 87 09/26/17 16:00 Resp 20 09/26/17 16:00 BP 111/67 09/26/17 16:00 Pulse Ox 92 L 09/26/17 16:00 Weight - Most Recent: 53.751 kg I&O - Last 24 Hours: Intake & Output 09/26/17 09/26/17 09/26/17 06:59 14:59 22:59 Intake Total 715 810 Output Total 375 850 Balance 340 -40 Lab Results Last 24 Hours: Laboratory Results - last 24 hr 09/26/17 Range/Units 06:22 Sodium 137 (135-145) mmol/L Potassium 4.3 D (3.5-5.3) mmol/L Chloride 101 D (100-110) mmol/L Carbon Dioxide 28 (23-29) mmol/L BUN 10 (8-23) mg/dL Creatinine 0.6 (0.6-1.3) mg/dL Est Cr Clr Drug Dosing 53.61 mL/min Estimated GFR (MDRD) > 60 (>60) BUN/Creatinine Ratio 16.7 (9-20) Glucose 90 (80-116) mg/dL Calcium 7.8 L (8.6-10.2) mg/dL NT-Pro-B Natriuret Pep 6881 H (5-450) pg/mL Med Orders - Current: Current Medications Acetaminophen (Tylenol) 650 mg PO Q4H PRN PRN Reason: Pain/Fever Last Admin: 09/26/17 07:37 Dose: 650 mg Albuterol/Ipratropium (Duoneb 3.0-0.5 Mg/3 Ml) 3 ml INH QID PRN PRN Reason: SOB/WHEEZING Bisacodyl (Dulcolax) 10 mg RECTAL Q72H PRN PRN Reason: Constipation Duloxetine HCl (Cymbalta) 60 mg PO DAILY [facility] Last Admin: 09/26/17 08:15 Dose: 60 mg Furosemide (Lasix) 20 mg IVPUSH BID [facility] Last Admin: 09/26/17 08:16 Dose: 20 mg Sodium Chloride (Normal Saline) 250 mls @ 100 mls/hr IV ASDIRECTED [facility] Last Admin: 09/25/17 13:30 Dose: 100 mls/hr Ceftriaxone Sodium 1,000 mg/ (Sodium Chloride) 50 mls @ 100 mls/hr IV Q24H [facility] Last Admin: 09/26/17 12:15 Dose: 100 mls/hr Vancomycin HCl 1,000 mg/ (Sodium Chloride) 250 mls @ 250 mls/hr IV Q18H [facility] Last Admin: 09/26/17 13:15 Dose: 250 mls/hr Levofloxacin/Dextrose 750 mg/ (Premix) 150 mls @ 100 mls/hr IV Q24H [facility] Last Admin: 09/26/17 14:41 Dose: 100 mls/hr Sodium Chloride (Normal Saline) 500 mls @ 30 mls/hr IV ASDIRECTED ONE Stop: 09/27/17 03:24 Last Admin: 09/26/17 17:33 Dose: 30 mls/hr Magnesium Hydroxide (Milk Of Magnesia) 30 ml PO DAILY PRN PRN Reason: Constipation Menthol (Perform Pain Reliever) 0 ml TP BID PRN PRN Reason: ARTHRITIS Methotrexate (Methotrexate) 20 mg PO TU@0800 [facility] Last Admin: 09/24/17 10:03 Dose: 20 mg Morphine Sulfate (Ms Contin) 15 mg PO BID [facility] Last Admin: 09/26/17 08:19 Dose: 15 mg Non-Formulary Medication (Menthol [Cough Drops]) 5 mg PO ASDIRECTED PRN PRN Reason: Cough Oxycodone HCl (Oxycodone) 5 mg PO BID PRN PRN Reason: Pain Polyethylene Glycol (Miralax) 17 gm PO DAILY PRN PRN Reason: Constipation Last Admin: 09/26/17 08:24 Dose: 17 gm Potassium Chloride (Klor-Con M20) 40 meq PO BID [facility] Last Admin: 09/26/17 08:15 Dose: 40 meq Saccharomyces Boulardii (Florastor) 250 mg PO 1200 [facility] Last Admin: 09/26/17 13:22 Dose: 250 mg Senna/Docusate Sodium (Senna Plus) 1 tab PO BID [facility] Last Admin: 09/26/17 08:16 Dose: 1 tab Sodium Chloride (Saline Flush) 10 ml FLUSH ASDIRECTED PRN PRN Reason: Keep Vein Open Last Admin: 09/26/17 08:20 Dose: 10 ml Teriparatide Acetate (Forteo) 20 mcg SUBCUT DAILY [facility] Last Admin: 09/26/17 08:20 Dose: 20 mcg Vancomycin HCl (Pharmacy To Dose - Vancomycin) 1 dose .XX ASDIRECTED [facility] Discontinued Medications Albuterol/Ipratropium (Duoneb 3.0-0.5 Mg/3 Ml) 3 ml NEB ONETIME ONE Stop: 09/23/17 08:47 Last Admin: 09/23/17 08:50 Dose: 3 ml Furosemide (Lasix) 40 mg IVPUSH NOW ONE Stop: 09/23/17 20:01 Last Admin: 09/23/17 20:03 Dose: 40 mg Levofloxacin/Dextrose 750 mg/ (Premix) 150 mls @ 100 mls/hr IV ONETIME ONE Stop: 09/23/17 10:49 Last Admin: 09/23/17 09:36 Dose: 100 mls/hr Sodium Chloride (Normal Saline) 500 mls @ 999 mls/hr IV .BOLUS ONE Stop: 09/23/17 09:51 Last Admin: 09/23/17 09:36 Dose: 400 mls/hr Vancomycin HCl 1,000 mg/ (Sodium Chloride) 250 mls @ 167 mls/hr IV ONETIME ONE Stop: 09/23/17 19:44 Last Admin: 09/23/17 19:55 Dose: 167 mls/hr Piperacillin Sod/Tazobactam (Sod 3.375 gm/ Sodium Chloride) 50 mls @ 100 mls/ hr IV ONETIME ONE Stop: 09/23/17 20:29 Last Admin: 09/23/17 22:09 Dose: 100 mls/hr Levofloxacin/Dextrose 750 mg/ (Premix) 150 mls @ 100 mls/hr IV Q24H [facility] Vancomycin HCl 1,000 mg/ (Sodium Chloride) 250 mls @ 250 mls/hr IV Q12H [facility] Last Admin: 09/24/17 20:24 Dose: 250 mls/hr Levofloxacin/Dextrose 750 mg/ (Premix) 150 mls @ 100 mls/hr IV Q24H [facility] Last Admin: 09/25/17 13:30 Dose: 100 mls/hr Potassium Chloride 10 meq/ (Premix) 100 mls @ 50 mls/hr IV Q4H [facility] Stop: 09/26/17 07:59 Last Admin: 09/26/17 06:19 Dose: 50 mls/hr Sodium Chloride (Normal Saline) 500 mls @ 0 mls/hr IV ASDIRECTED ONE PRN Reason: KVO Stop: 09/25/17 14:38 Last Admin: 09/26/17 04:23 Dose: 10 mls/hr Vancomycin HCl (Vancomycin) Confirm Administered Dose 1,000 mg .ROUTE .STK-MED ONE Stop: 09/23/17 18:36 Last Admin: 09/23/17 19:56 Dose: Not Given - Exam Quality Assessment: Supplemental Oxygen General: Alert, Oriented HEENT: Pupils Equal, Pupils Reactive, EOMI, Mucous Membr. Moist/[place] Neck: Supple Lungs: Decreased Breath Sounds, Rales Cardiovascular: Regular Rate, Regular Rhythm GI/Abdominal Exam: Normal Bowel Sounds, Soft, Non-Tender, No Organomegaly, No Distention, No Abnormal Bruit, No Mass, Pelvis Stable - Problem List & Annotations (1) CHF (congestive heart failure) SNOMED Code(s): 59042571 Code(s): I50.9 - HEART FAILURE, UNSPECIFIED Status: Acute Current Visit: Yes Qualifiers: Congestive heart failure type: unspecified congestive heart failure type Congestive heart failure chronicity: acute on chronic Qualified Code(s): I50.9 - Heart failure, unspecified (2) Lethargic SNOMED Code(s): 219694679 Code(s): R53.83 - OTHER FATIGUE Status: Acute Current Visit: Yes (3) Palliative care status SNOMED Code(s): 032748128 Code(s): Z51.5 - ENCOUNTER FOR PALLIATIVE CARE Status: Acute Current Visit: Yes (4) Hypoxia SNOMED Code(s): 303032224 Code(s): R09.02 - HYPOXEMIA Status: Acute Current Visit: No (5) Pneumonia SNOMED Code(s): 945663640 Code(s): J18.9 - PNEUMONIA, UNSPECIFIED ORGANISM Status: Acute Current Visit: Yes Qualifiers: Pneumonia type: due to unspecified organism Laterality: right Lung location: upper lobe of lung Qualified Code(s): J18.1 - Lobar pneumonia, unspecified organism (6) Rheumatoid arthritis SNOMED Code(s): 26851494 Code(s): M06.9 - RHEUMATOID ARTHRITIS, UNSPECIFIED Status: Acute Current Visit: Yes Qualifiers: Laterality: unspecified laterality (7) Chronic, continuous use of opioids SNOMED Code(s): 286609837 Code(s): F11.90 - OPIOID USE, UNSPECIFIED, UNCOMPLICATED Status: Acute Current Visit: Yes (8) Constipation due to opioid therapy SNOMED Code(s): 381159242705020 Code(s): K59.03 - DRUG INDUCED CONSTIPATION; T40.2X5A - ADVERSE EFFECT OF OTHER OPIOIDS, INITIAL ENCOUNTER Status: Acute Current Visit: Yes (9) CAD (coronary artery disease) SNOMED Code(s): 12140811 Code(s): I25.10 - ATHSCL HEART DISEASE OF [place] CORONARY ARTERY W/O ANG PCTRS Status: Acute Current Visit: Yes Qualifiers: Coronary Disease-Associated Artery/Lesion type: [place] artery Associated angina: angina presence unspecified - Problem List Review Problem List Initiated/Reviewed/Updated: Yes - My Orders Last 24 Hours: My Active Orders 09/26/17 10:45 Sodium Chloride 0.9% [Normal Saline] 500 ml IV ASDIRECTED 09/26/17 14:00 Levofloxacin/Dextrose 5%-Water [Levaquin in D5W 750 MG/150 ML] 750 mg Premix Bag 1 bag IV Q24H 09/27/17 05:30 VANCOMYCIN TROUGH [CHEM] Timed - Plan Plan:: Continue antibiotics for 1 more day I believe this can be discontinued tomorrow. The chest x-ray looks much better than on admission. Home wehn off O2 or with Home o2,anticipate towards end of the week.
[2017-09-27] MEDS: Sodium Chloride 0.9% 10 ML Syringe FLUSH PRN ×2 (03:49→08:47)
[2017-09-27] MEDS: Potassium Chloride 20 MEQ Tab.ER PO SCH ×2 (08:35→20:45)
[2017-09-27] MEDS: DULoxetine 60 MG Cap PO SCH (08:35)
[2017-09-27] MEDS: Morphine 15 MG Tab.ER PO SCH ×2 (08:35→20:45)
[2017-09-27] MEDS: TERIPARATIDE 600 MCG/2.4 ML SUBCUT SCH (08:35)
[2017-09-27] MEDS: Furosemide 20 MG/2 ML VIAL IVPUSH SCH (08:44)
[2017-09-27] MEDS: Saccharomyces Boulardii (Probiotic) 250 MG Cap PO SCH (12:07)
[2017-09-27] MEDS: cefTRIAXone 1,000 MG in Sodium Chloride 0.9% 50 ML IV SCH (12:13)
[2017-09-27] MEDS ORDERED: cefTRIAXone 1,000 MG VIAL IM ONE (12:41)
[2017-09-27] MEDS: Albuterol/Ipratropium 3.0-0.5 MG/3 ML Neb Soln INH PRN (14:24)
--- NOTE | 2017-09-27 17:08 | CT ---
INDICATION: Abnormal chest x-ray, history of recurrent pneumonias. CT CHEST WITHOUT CONTRAST: Spiral 2.5-mm axial sections were obtained through the chest without contrast, with sagittal and coronal reconstructions, 2016, and compared with 02/28/2010 CT of the chest. Total Exam DLP = 223.93 mGy-cm. Apical pleuroparenchymal scarring is again noted, most likely on the basis of previous granulomatous disease. Severe emphysematous changes are again noted and appear more widespread and severe than on the previous study of 2009. Patchy areas of infiltrate are scattered about the lungs bilaterally and about the lobes with relative sparing of the left lower lobe. Abnormal airspace area is noted at the right lung base in the lower lobe which appears to be new. One old and one new nodule are noted at the right middle lobe near the lung base. One apparently has been present since 2010. The newer more irregular, somewhat spiculated appearing nodule measured approximately 12 mm on the lung window. In the right upper lobe, there is a tiny new nodule on axial image #43. Another new nodular density is seen in the apical right lung on axial image #16 and is again very tiny in size. No other definite new nodularity is seen, although multiple subpleural densities are present, which appear to be new and could also be considered to be nodularities. These areas may represent post granulomatous scarring, although an active disease process such as neoplasia cannot be excluded. A follow-up CT of the chest in 3 months is recommended without contrast to reevaluate these areas of nodularity, depending upon clinical correlation. A consolidating pneumonia or large effusion was not identified. There is suggestion of small bilateral pleural effusions and/or pleural thickening, which is new compared with 2010. Again, this may be on the basis of active disease and/or fibrosis and should be correlated clinically. The heart appears increased in size compared with the previous study, with coronary artery disease present - calcifications noted. Calcifications are also noted in the aorta and brachiocephalic vessels. Mediastinal lymphadenopathy is noted, which may be new compared with the previous study and is moderate in degree. The largest lymph node is precarinal , measuring approximately 17 mm. These may be on the basis of inflammatory change, but should be correlated clinically. The gallbladder appears somewhat distended. No definite calculi were seen. This may simply be on the basis of NPO status, but should be correlated clinically. The pancreas is fatty replaced. Calcifications are noted in the abdominal aorta, splenic artery, and proximal renal arteries. Renal cortical scarring is noted. IMPRESSION: 1. There is new nodularity compared with 2010. Follow-up CT is recommended in 3 months to evaluate for any change in size. With the one 12-mm nodular density present, and depending upon clinical correlation, additional examination such as biopsy or PET scan may also be considered. 2. Increased prominence of emphysematous changes is noted. 3. Subpleural and other patchy areas of infiltration are noted scattered about the lungs, appearing most prominent in the right upper lobe and largely new compared with 2010. These findings could be on the basis of areas of chronic inflammatory disease. The possibility of aspiration pneumonia would be a consideration. Associated with the infiltration is new thickening of the pleura posteriorly and bilaterally. This may be related to small pleural effusions, possibly pleuritis, and the possibility of pleural fibrosis would also be a consideration. Areas of acute pneumonia and pleuritis certainly cannot be excluded with this appearance. 4. ASHD/ASD with cardiomegaly. 5. Renal cortical scarring. Follow-up to clearing is recommended, depending upon clinical correlation. MTDD
--- NOTE | 2017-09-27 17:13 | PCM.PN ---
- General Info Date of Service: 09/27/17 Admission Dx/Problem (Free Text): unresponsive, CHF with acute exacerbation, possible aspiration pneumonia. Subjective Update: Patient is an 82-year-old female with 3 hospitalizations since the end of July for cough and unresponsiveness. The patient was hospitalized August 24 then again 09/18- for pneumonia and now came back in on the date of admission, 09/23, with unresponsiveness, hypoxia, and elevated white count at 14.6. Her daughter is with her today as I'm visiting with her. She actually has improved significantly. She's been on triple antibiotic therapy with Levaquin which she was also treated with in her 2 previous hospitalizations and came in on, vancomycin which was started on 09/25 and Rocephin which was started on 09/24. Shortness of breath was not really an issue for her but she continues to be hypoxic on room air. She didn't really have a cough this hospitalization but has with her previous hospitalizations. She is feeling much improved today. Unfortunately we've had difficulty with IV access and her IV again is no longer functioning so she currently has no IV access and very little spots within which to start an IV. X-ray showed significant pulmonary edema when she came in and on the second was repeated and showed significant improvement. The patient' s oxygen needs have dropped dramatically to 2 L today with 94% saturations. She is sitting up in bed in no distress. Her pain has been well-controlled. She's had no nausea. She does have a history of chronic constipation on a number of stool softeners. Of note the patient's methotrexate which she takes for rheumatoid arthritis was not stopped with any of her previous admissions. She had a history of bacteremia with her 08/24 admission with Staphylococcus Lugdunensis. This is only in one bottle, anaerobic, and was sensitive to Levaquin which she was discharged home on. She then came back in on 18 September with a pneumonia and was again discharged on Levaquin. She was still on the Levaquin when she comes back in this time. No chest pain, still requiring oxygen which is not her baseline. - Patient Data Vitals - Most Recent: Last Vital Signs Temp 36.9 C 09/27/17 16:01 Pulse 91 09/27/17 16:01 Resp 20 09/27/17 16:01 BP 108/49 L 09/27/17 16:01 Pulse Ox 93 L 09/27/17 16:01 Weight - Most Recent: 52.889 kg I&O - Last 24 Hours: Intake & Output 09/27/17 09/27/17 09/27/17 06:59 14:59 22:59 Intake Total 221 528 Output Total 1400 800 Balance -1179 -272 Lab Results Last 24 Hours: Laboratory Results - last 24 hr 09/27/17 Range/Units 06:50 Vancomycin Trough 22.4 H* (10-15) ug/mL Med Orders - Current: Current Medications Acetaminophen (Tylenol) 650 mg PO Q4H PRN PRN Reason: Pain/Fever Last Admin: 09/26/17 07:37 Dose: 650 mg Albuterol/Ipratropium (Duoneb 3.0-0.5 Mg/3 Ml) 3 ml INH QID PRN PRN Reason: SOB/WHEEZING Last Admin: 09/27/17 14:24 Dose: 3 ml Bisacodyl (Dulcolax) 10 mg RECTAL Q72H PRN PRN Reason: Constipation Clindamycin HCl (Cleocin) 300 mg PO QID [facility] Stop: 10/04/17 17:01 Duloxetine HCl (Cymbalta) 60 mg PO DAILY [facility] Last Admin: 09/27/17 08:35 Dose: 60 mg Furosemide (Lasix) 20 mg PO DAILY [facility] Sodium Chloride (Normal Saline) 250 mls @ 100 mls/hr IV ASDIRECTED [facility] Last Admin: 09/25/17 13:30 Dose: 100 mls/hr Magnesium Hydroxide (Milk Of Magnesia) 30 ml PO DAILY PRN PRN Reason: Constipation Menthol (Perform Pain Reliever) 0 ml TP BID PRN PRN Reason: ARTHRITIS Morphine Sulfate (Ms Contin) 15 mg PO BID [facility] Last Admin: 09/27/17 08:35 Dose: 15 mg Non-Formulary Medication (Menthol [Cough Drops]) 5 mg PO ASDIRECTED PRN PRN Reason: Cough Oxycodone HCl (Oxycodone) 5 mg PO BID PRN PRN Reason: Pain Polyethylene Glycol (Miralax) 17 gm PO DAILY PRN PRN Reason: Constipation Last Admin: 09/26/17 08:24 Dose: 17 gm Potassium Chloride (Klor-Con M20) 40 meq PO BID [facility] Last Admin: 09/27/17 08:35 Dose: 40 meq Saccharomyces Boulardii (Florastor) 250 mg PO 1200 [facility] Last Admin: 09/27/17 12:07 Dose: 250 mg Senna/Docusate Sodium (Senna Plus) 1 tab PO BID [facility] Last Admin: 09/27/17 08:35 Dose: 1 tab Sodium Chloride (Saline Flush) 10 ml FLUSH ASDIRECTED PRN PRN Reason: Keep Vein Open Last Admin: 09/27/17 08:47 Dose: 10 ml Teriparatide Acetate (Forteo) 20 mcg SUBCUT DAILY [facility] Last Admin: 09/27/17 08:35 Dose: 20 mcg Discontinued Medications Albuterol/Ipratropium (Duoneb 3.0-0.5 Mg/3 Ml) 3 ml NEB ONETIME ONE Stop: 09/23/17 08:47 Last Admin: 09/23/17 08:50 Dose: 3 ml Ceftriaxone Sodium (Rocephin) 1,000 mg IM ONETIME ONE Stop: 09/27/17 12:42 Last Admin: 09/27/17 12:59 Dose: 1,000 mg Furosemide (Lasix) 40 mg IVPUSH NOW ONE Stop: 09/23/17 20:01 Last Admin: 09/23/17 20:03 Dose: 40 mg Furosemide (Lasix) 20 mg IVPUSH BID [facility] Last Admin: 09/27/17 08:44 Dose: 20 mg Levofloxacin/Dextrose 750 mg/ (Premix) 150 mls @ 100 mls/hr IV ONETIME ONE Stop: 09/23/17 10:49 Last Admin: 09/23/17 09:36 Dose: 100 mls/hr Sodium Chloride (Normal Saline) 500 mls @ 999 mls/hr IV .BOLUS ONE Stop: 09/23/17 09:51 Last Admin: 09/23/17 09:36 Dose: 400 mls/hr Vancomycin HCl 1,000 mg/ (Sodium Chloride) 250 mls @ 167 mls/hr IV ONETIME ONE Stop: 09/23/17 19:44 Last Admin: 09/23/17 19:55 Dose: 167 mls/hr Piperacillin Sod/Tazobactam (Sod 3.375 gm/ Sodium Chloride) 50 mls @ 100 mls/ hr IV ONETIME ONE Stop: 09/23/17 20:29 Last Admin: 09/23/17 22:09 Dose: 100 mls/hr Levofloxacin/Dextrose 750 mg/ (Premix) 150 mls @ 100 mls/hr IV Q24H [facility] Vancomycin HCl 1,000 mg/ (Sodium Chloride) 250 mls @ 250 mls/hr IV Q12H [facility] Last Admin: 09/24/17 20:24 Dose: 250 mls/hr Ceftriaxone Sodium 1,000 mg/ (Sodium Chloride) 50 mls @ 100 mls/hr IV Q24H [facility] Last Admin: 09/27/17 12:13 Dose: 100 mls/hr Levofloxacin/Dextrose 750 mg/ (Premix) 150 mls @ 100 mls/hr IV Q24H [facility] Last Admin: 09/25/17 13:30 Dose: 100 mls/hr Potassium Chloride 10 meq/ (Premix) 100 mls @ 50 mls/hr IV Q4H [facility] Stop: 09/26/17 07:59 Last Admin: 09/26/17 06:19 Dose: 50 mls/hr Sodium Chloride (Normal Saline) 500 mls @ 0 mls/hr IV ASDIRECTED ONE PRN Reason: KVO Stop: 09/25/17 14:38 Last Admin: 09/26/17 04:23 Dose: 10 mls/hr Vancomycin HCl 1,000 mg/ (Sodium Chloride) 250 mls @ 250 mls/hr IV Q18H [facility] Last Admin: 09/27/17 06:59 Dose: 250 mls/hr Levofloxacin/Dextrose 750 mg/ (Premix) 150 mls @ 100 mls/hr IV Q24H [facility] Last Admin: 09/26/17 14:41 Dose: 100 mls/hr Sodium Chloride (Normal Saline) 500 mls @ 30 mls/hr IV ASDIRECTED ONE Stop: 09/27/17 03:24 Last Admin: 09/26/17 17:33 Dose: 30 mls/hr Vancomycin HCl 1,000 mg/ (Sodium Chloride) 250 mls @ 250 mls/hr IV Q24H [facility] Last Admin: 09/27/17 16:56 Dose: Not Given Methotrexate (Methotrexate) 20 mg PO TU@0800 [facility] Last Admin: 09/24/17 10:03 Dose: 20 mg Vancomycin HCl (Vancomycin) Confirm Administered Dose 1,000 mg .ROUTE .STK-MED ONE Stop: 09/23/17 18:36 Last Admin: 09/23/17 19:56 Dose: Not Given Vancomycin HCl (Pharmacy To Dose - Vancomycin) 1 dose .XX ASDIRECTED [facility] - Exam Quality Assessment: Supplemental Oxygen, Urine Catheter General: Alert, Oriented, Cooperative, No Acute Distress HEENT: Pupils Equal, Pupils Reactive Neck: Supple Lungs: Decreased Breath Sounds, Crackles (Fine crackles in the bases bilaterally otherwise clear.) Cardiovascular: Regular Rate, Regular Rhythm, No Murmurs GI/Abdominal Exam: Normal Bowel Sounds, Soft, Non-Tender, No Organomegaly, No Distention Back Exam: Normal Inspection Extremities: Normal Inspection (No open sores although she has some chronic foot deformities. No edema.) Skin: Other (Upper extremities are bruised from hand to elbow) Psy/Mental Status: Alert, Normal Affect, Normal Mood - Problem List & Annotations (1) CHF (congestive heart failure) SNOMED Code(s): 19269560 Code(s): I50.9 - HEART FAILURE, UNSPECIFIED Status: Acute Current Visit: Yes Qualifiers: Congestive heart failure type: unspecified congestive heart failure type Congestive heart failure chronicity: acute on chronic Qualified Code(s): I50.9 - Heart failure, unspecified Annotation/Comment:: Patient has responded well to IV Lasix twice a day. We'll decrease this to 20 mg by mouth every morning and see how she tolerates. Will need to be followed closely in the outpatient setting to make sure this is decreased if needed. LORELEI Batista at this time. (2) Pneumonia SNOMED Code(s): 915677201 Code(s): J18.9 - PNEUMONIA, UNSPECIFIED ORGANISM Status: Acute Current Visit: Yes Qualifiers: Pneumonia type: aspiration pneumonia Laterality: right Lung location: upper lobe of lung Annotation/Comment:: Given the patient's recurrent pneumonia, I think we need to hold her methotrexate for at least a month if she can tolerate it. I suspect the patient may be having silent aspiration. Would like to get a swallow evaluation to see if she should be on a different kind of diet or thickened liquids. I'm going to discontinue all her IV antibiotics at this point since she has no IV access and switch her to clindamycin 300 mg 4 times a day for another 7 days. Continue probiotic for prevention of C. difficile. (3) Chronic, continuous use of opioids SNOMED Code(s): 892706580 Code(s): F11.90 - OPIOID USE, UNSPECIFIED, UNCOMPLICATED Status: Acute Current Visit: Yes Annotation/Comment:: Discussed the risk that the narcotics may be playing and respiratory suppression and level of consciousness suppression. Pain management has been a big issue for this patient and family is not interested in decreasing the dose. Continue current doses. (4) Constipation due to opioid therapy SNOMED Code(s): 887669895494741 Code(s): K59.03 - DRUG INDUCED CONSTIPATION; T40.2X5A - ADVERSE EFFECT OF OTHER OPIOIDS, INITIAL ENCOUNTER Status: Acute Current Visit: Yes Annotation/Comment:: Continue stool softeners, monitoring. Could consider adding lactulose for additional laxative benefit. (5) Rheumatoid arthritis SNOMED Code(s): 26330203 Code(s): M06.9 - RHEUMATOID ARTHRITIS, UNSPECIFIED Status: Acute Current Visit: Yes Qualifiers: Laterality: unspecified laterality Annotation/Comment:: Patient's disease has been chronic and difficult to control. However he think at this time given her recurrent infections she is going to require methotrexate to be stopped. Monitor closely. Low threshold for adding prednisone if patient has a flare. - Problem List Review Problem List Initiated/Reviewed/Updated: Yes - My Orders Last 24 Hours: My Active Orders 09/27/17 13:48 Swallowing Function w Video [CR] Routine 09/27/17 13:49 Consult to Speech Language Pathology [[employer] Evaluation and Treatment] [CONS] Routine 09/27/17 13:58 RT Sputum Induction [RC] Click to Edit CULTURE SPUTUM + SMEAR [RM] Routine 09/27/17 17:00 Clindamycin HCl [Cleocin] 300 mg PO Q6H 09/28/17 05:00 COMPREHENSIVE METABOLIC PN,CMP [CHEM] Routine 09/28/17 05:11 CBC WITH AUTO DIFF [HEME] AM 09/28/17 09:00 Furosemide [Lasix] 20 mg PO DAILY - Plan Plan:: Discussed patient's desires for goals of care and focus is on keeping her comfortable and as well as possible.
[2017-09-27] MEDS: Clindamycin HCl 150 MG Cap PO SCH ×2 (17:31→20:44)
[2017-09-28] MEDS: Furosemide 20 MG Tab PO SCH (08:39)
[2017-09-28] MEDS: Potassium Chloride 20 MEQ Tab.ER PO SCH (08:39)
[2017-09-28] MEDS: DULoxetine 60 MG Cap PO SCH (08:39)
[2017-09-28] MEDS: TERIPARATIDE 600 MCG/2.4 ML SUBCUT SCH (08:43)
[2017-09-28] MEDS: Morphine 15 MG Tab.ER PO SCH ×2 (08:44→20:34)
[2017-09-28] MEDS: Clindamycin HCl 150 MG Cap PO SCH ×4 (08:44→20:32)
[2017-09-28] MEDS: Albuterol/Ipratropium 3.0-0.5 MG/3 ML Neb Soln INH PRN (09:37)
[2017-09-28] MEDS: Saccharomyces Boulardii (Probiotic) 250 MG Cap PO SCH (13:06)
--- NOTE | 2017-09-28 13:25 | PCM.PN ---
- General Info Date of Service: 09/28/17 Subjective Update: Patient feels much improved today. Minimal cough. Shortness of breath improved. No nausea, no vomiting. No abdominal pain. No chest pain. Her hands still really bother her from her arthritis. Functional Status: Reports: Tolerating Diet, Urinating - Patient Data Vitals - Most Recent: Last Vital Signs Temp 37.0 C 09/28/17 08:00 Pulse 96 09/28/17 09:47 Resp 18 09/28/17 08:00 BP 103/64 09/28/17 08:00 Pulse Ox 93 L 09/28/17 09:39 Weight - Most Recent: 53.161 kg I&O - Last 24 Hours: Intake & Output 09/27/17 09/28/17 09/28/17 22:59 06:59 14:59 Intake Total 120 300 50 Output Total 250 Balance 120 300 -200 Lab Results Last 24 Hours: Laboratory Results - last 24 hr 09/28/17 09/28/17 Range/Units 06:25 06:25 WBC 11.4 (4.5-12.0) X10-3/uL RBC 4.09 (3.23-5.20) x10(6)uL Hgb 11.7 (11.5-15.5) g/dL Hct 37.6 (30.0-51.3) % MCV 91.9 (80-96) fL MCH 28.7 (27.7-33.6) pg MCHC 31.2 L (32.2-35.4) g/dL RDW 16.5 H (11.5-15.5) % Plt Count 235 (125-369) X10(3)uL MPV 6.9 L (7.4-10.4) fL Neut % (Auto) 53.3 (46-82) % Lymph % (Auto) 36.4 (13-37) % Holmes % (Auto) 3.8 L (4-12) % Eos % (Auto) 4 (1.0-5.0) % Baso % (Auto) 2 (0-2) % Neut # (Auto) 6.2 (1.6-8.3) # Lymph # (Auto) 4.1 (0.6-5.0) # Holmes # (Auto) 0.4 (0.0-1.3) # Eos # (Auto) 0.5 (0.0-0.8) # Baso # (Auto) 0.2 (0.0-0.2) # Sodium 139 (135-145) mmol/L Potassium 5.0 (3.5-5.3) mmol/L Chloride 102 (100-110) mmol/L Carbon Dioxide 27 (23-29) mmol/L BUN 12 (8-23) mg/dL Creatinine 0.6 (0.6-1.3) mg/dL Est Cr Clr Drug Dosing 53.61 mL/min Estimated GFR (MDRD) > 60 (>60) BUN/Creatinine Ratio 20.0 (9-20) Glucose 91 (80-116) mg/dL Calcium 8.8 (8.6-10.2) mg/dL Total Bilirubin 0.9 (0.1-1.3) mg/dL AST 38 H D (5-27) IU/L ALT 62 H D (14-26) IU/L Alkaline Phosphatase 67 (56-112) IU/L Total Protein 6.0 (6.0-8.0) g/dL Albumin 2.5 L (3.2-4.6) g/dL Globulin 3.5 g/dL Albumin/Globulin Ratio 0.7 Med Orders - Current: Current Medications Acetaminophen (Tylenol) 650 mg PO Q4H PRN PRN Reason: Pain/Fever Last Admin: 09/26/17 07:37 Dose: 650 mg Albuterol/Ipratropium (Duoneb 3.0-0.5 Mg/3 Ml) 3 ml INH QID PRN PRN Reason: SOB/WHEEZING Last Admin: 09/28/17 09:37 Dose: 3 ml Bisacodyl (Dulcolax) 10 mg RECTAL Q72H PRN PRN Reason: Constipation Clindamycin HCl (Cleocin) 300 mg PO QID [facility] Stop: 10/04/17 17:01 Last Admin: 09/28/17 13:06 Dose: 300 mg Duloxetine HCl (Cymbalta) 60 mg PO DAILY [facility] Last Admin: 09/28/17 08:39 Dose: 60 mg Furosemide (Lasix) 20 mg PO DAILY [facility] Last Admin: 09/28/17 08:39 Dose: 20 mg Sodium Chloride (Normal Saline) 250 mls @ 100 mls/hr IV ASDIRECTED [facility] Last Admin: 09/25/17 13:30 Dose: 100 mls/hr Magnesium Hydroxide (Milk Of Magnesia) 30 ml PO DAILY PRN PRN Reason: Constipation Menthol (Perform Pain Reliever) 0 ml TP BID PRN PRN Reason: ARTHRITIS Morphine Sulfate (Ms Contin) 15 mg PO BID [facility] Last Admin: 09/28/17 08:44 Dose: 15 mg Non-Formulary Medication (Menthol [Cough Drops]) 5 mg PO ASDIRECTED PRN PRN Reason: Cough Oxycodone HCl (Oxycodone) 5 mg PO BID PRN PRN Reason: Pain Polyethylene Glycol (Miralax) 17 gm PO DAILY PRN PRN Reason: Constipation Last Admin: 09/26/17 08:24 Dose: 17 gm Saccharomyces Boulardii (Florastor) 250 mg PO 1200 [facility] Last Admin: 09/28/17 13:06 Dose: 250 mg Senna/Docusate Sodium (Senna Plus) 1 tab PO BID [facility] Last Admin: 09/28/17 08:39 Dose: 1 tab Sodium Chloride (Saline Flush) 10 ml FLUSH ASDIRECTED PRN PRN Reason: Keep Vein Open Last Admin: 09/27/17 08:47 Dose: 10 ml Teriparatide Acetate (Forteo) 20 mcg SUBCUT DAILY [facility] Last Admin: 09/28/17 08:43 Dose: 20 mcg Discontinued Medications Albuterol/Ipratropium (Duoneb 3.0-0.5 Mg/3 Ml) 3 ml NEB ONETIME ONE Stop: 09/23/17 08:47 Last Admin: 09/23/17 08:50 Dose: 3 ml Ceftriaxone Sodium (Rocephin) 1,000 mg IM ONETIME ONE Stop: 09/27/17 12:42 Last Admin: 09/27/17 12:59 Dose: 1,000 mg Furosemide (Lasix) 40 mg IVPUSH NOW ONE Stop: 09/23/17 20:01 Last Admin: 09/23/17 20:03 Dose: 40 mg Furosemide (Lasix) 20 mg IVPUSH BID [facility] Last Admin: 09/27/17 08:44 Dose: 20 mg Levofloxacin/Dextrose 750 mg/ (Premix) 150 mls @ 100 mls/hr IV ONETIME ONE Stop: 09/23/17 10:49 Last Admin: 09/23/17 09:36 Dose: 100 mls/hr Sodium Chloride (Normal Saline) 500 mls @ 999 mls/hr IV .BOLUS ONE Stop: 09/23/17 09:51 Last Admin: 09/23/17 09:36 Dose: 400 mls/hr Vancomycin HCl 1,000 mg/ (Sodium Chloride) 250 mls @ 167 mls/hr IV ONETIME ONE Stop: 09/23/17 19:44 Last Admin: 09/23/17 19:55 Dose: 167 mls/hr Piperacillin Sod/Tazobactam (Sod 3.375 gm/ Sodium Chloride) 50 mls @ 100 mls/ hr IV ONETIME ONE Stop: 09/23/17 20:29 Last Admin: 09/23/17 22:09 Dose: 100 mls/hr Levofloxacin/Dextrose 750 mg/ (Premix) 150 mls @ 100 mls/hr IV Q24H [facility] Vancomycin HCl 1,000 mg/ (Sodium Chloride) 250 mls @ 250 mls/hr IV Q12H [facility] Last Admin: 09/24/17 20:24 Dose: 250 mls/hr Ceftriaxone Sodium 1,000 mg/ (Sodium Chloride) 50 mls @ 100 mls/hr IV Q24H [facility] Last Admin: 09/27/17 12:13 Dose: 100 mls/hr Levofloxacin/Dextrose 750 mg/ (Premix) 150 mls @ 100 mls/hr IV Q24H [facility] Last Admin: 09/25/17 13:30 Dose: 100 mls/hr Potassium Chloride 10 meq/ (Premix) 100 mls @ 50 mls/hr IV Q4H [facility] Stop: 09/26/17 07:59 Last Admin: 09/26/17 06:19 Dose: 50 mls/hr Sodium Chloride (Normal Saline) 500 mls @ 0 mls/hr IV ASDIRECTED ONE PRN Reason: KVO Stop: 09/25/17 14:38 Last Admin: 09/26/17 04:23 Dose: 10 mls/hr Vancomycin HCl 1,000 mg/ (Sodium Chloride) 250 mls @ 250 mls/hr IV Q18H [facility] Last Admin: 09/27/17 06:59 Dose: 250 mls/hr Levofloxacin/Dextrose 750 mg/ (Premix) 150 mls @ 100 mls/hr IV Q24H [facility] Last Admin: 09/26/17 14:41 Dose: 100 mls/hr Sodium Chloride (Normal Saline) 500 mls @ 30 mls/hr IV ASDIRECTED ONE Stop: 09/27/17 03:24 Last Admin: 09/26/17 17:33 Dose: 30 mls/hr Vancomycin HCl 1,000 mg/ (Sodium Chloride) 250 mls @ 250 mls/hr IV Q24H [facility] Last Admin: 09/27/17 16:56 Dose: Not Given Methotrexate (Methotrexate) 20 mg PO TU@0800 [facility] Last Admin: 09/24/17 10:03 Dose: 20 mg Potassium Chloride (Klor-Con M20) 40 meq PO BID [facility] Last Admin: 09/28/17 08:39 Dose: 40 meq Vancomycin HCl (Vancomycin) Confirm Administered Dose 1,000 mg .ROUTE .STK-MED ONE Stop: 09/23/17 18:36 Last Admin: 09/23/17 19:56 Dose: Not Given Vancomycin HCl (Pharmacy To Dose - Vancomycin) 1 dose .XX ASDIRECTED [facility] - Exam General: Alert, Oriented, No Acute Distress HEENT: Pupils Equal, Pupils Reactive Lungs: Other (Diminished lung sounds. Patient was sleeping and has more crackles today as well as occasional rhonchi. These improve with more deep breathing so suspect related to the fact that she was resting.) Cardiovascular: Regular Rate, Regular Rhythm, No Murmurs GI/Abdominal Exam: Normal Bowel Sounds, Soft, Non-Tender, No Distention Extremities: No Pedal Edema (Hands and feet show signs of rheumatoid arthritis changes. Hands are warm.) - Problem List & Annotations (1) CHF (congestive heart failure) SNOMED Code(s): 20213821 Code(s): I50.9 - HEART FAILURE, UNSPECIFIED Status: Acute Current Visit: Yes Qualifiers: Congestive heart failure type: unspecified congestive heart failure type Congestive heart failure chronicity: acute on chronic Qualified Code(s): I50.9 - Heart failure, unspecified Annotation/Comment:: Continue oral Lasix at discharge. Anticipate discharge tomorrow. (2) Pneumonia SNOMED Code(s): 846865463 Code(s): J18.9 - PNEUMONIA, UNSPECIFIED ORGANISM Status: Acute Current Visit: Yes Qualifiers: Pneumonia type: aspiration pneumonia Laterality: right Lung location: upper lobe of lung Annotation/Comment:: Improved. CT scan of the chest did show areas of infiltrate patchy bilaterally. Continue clindamycin for a total of 7 days and continue probiotic. Consider outpatient swallow evaluation which is has already been arranged. (3) Chronic, continuous use of opioids SNOMED Code(s): 532714803 Code(s): F11.90 - OPIOID USE, UNSPECIFIED, UNCOMPLICATED Status: Acute Current Visit: Yes Annotation/Comment:: Discussed the risk that the narcotics may be playing and respiratory suppression and level of consciousness suppression. Pain management has been a big issue for this patient and family is not interested in decreasing the dose. Continue current doses. (4) Constipation due to opioid therapy SNOMED Code(s): 313426486261806 Code(s): K59.03 - DRUG INDUCED CONSTIPATION; T40.2X5A - ADVERSE EFFECT OF OTHER OPIOIDS, INITIAL ENCOUNTER Status: Acute Current Visit: Yes Annotation/Comment:: Continue stool softeners, monitoring. Could consider adding lactulose for additional laxative benefit. (5) Rheumatoid arthritis SNOMED Code(s): 27483439 Code(s): M06.9 - RHEUMATOID ARTHRITIS, UNSPECIFIED Status: Acute Current Visit: Yes Qualifiers: Laterality: unspecified laterality Annotation/Comment:: Hand pain is the patient's biggest pain issue at this time. Consider using capsaicin HP Arthritis cream or other deep penetrating pain relieving rub. She's never tried these before. (6) Abnormal CT of the chest SNOMED Code(s): 689314680 Code(s): R93.8 - ABNORMAL FINDINGS ON DIAGNOSTIC IMAGING OF BODY STRUCTURES Status: Acute Current Visit: Yes Annotation/Comment:: CT shows patchy infiltrates as well as a couple lung nodules. Given the patient's desire for comfort measures would not pursue the nodules but I think this confirms her current decision to treat this like an aspiration pneumonia and do further evaluation for this. We'll need to discuss this with family. - Problem List Review Problem List Initiated/Reviewed/Updated: Yes - My Orders Last 24 Hours: My Active Orders 09/27/17 13:48 Swallowing Function w Video [CR] Routine 09/27/17 13:49 Consult to Speech Language Pathology [[employer] Evaluation and Treatment] [CONS] Routine 09/27/17 13:58 RT Sputum Induction [RC] Click to Edit CULTURE SPUTUM + SMEAR [RM] Routine 09/27/17 17:00 Clindamycin HCl [Cleocin] 300 mg PO QID 09/28/17 09:00 Furosemide [Lasix] 20 mg PO DAILY 09/29/17 05:11 CBC WITH AUTO DIFF [HEME] AM COMPREHENSIVE METABOLIC PN,CMP [CHEM] AM 09/30/17 12:30 Swallowing Function w Video [CR] Routine - Plan Plan:: Discussed patient's desires for goals of care and focus is on keeping her comfortable and as well as possible.
[2017-09-28] MEDS ORDERED: CAPSAICIN TOP SCH (13:30)
[2017-09-28] MEDS: CAPZASIN HP TOP SCH ×2 (14:44→20:31)
[2017-09-29] MEDS: DULoxetine 60 MG Cap PO SCH (08:37)
[2017-09-29] MEDS: Clindamycin HCl 150 MG Cap PO SCH (08:37)
[2017-09-29] MEDS: Morphine 15 MG Tab.ER PO SCH (08:38)
[2017-09-29] MEDS: TERIPARATIDE 600 MCG/2.4 ML SUBCUT SCH (08:38)
[2017-09-29] MEDS: Furosemide 20 MG Tab PO SCH (08:38)
[2017-09-29] MEDS: CAPZASIN HP TOP SCH (08:39)
--- NOTE | 2017-09-29 08:55 | PCM.DCSUM1 ---
Discharge Summary - Hospital Course Free Text/Narrative:: Patient is an 82-year-old female with 3 hospitalizations since the end of July for cough and unresponsiveness. The patient was hospitalized August 24 then again 09/18- for pneumonia and now came back in on the date of admission, 09/23, with unresponsiveness, hypoxia, and elevated white count at 14.6. X-ray showed significant pulmonary edema when she came in. Patient has hx of RA and on methotrexate which hadn't been stopped with previous infections. She had a history of bacteremia with her 08/24 admission with Staphylococcus Lugdunensis. This is only in one bottle, anaerobic, and was sensitive to Levaquin which she was discharged home on. She then came back in on 18 September with a pneumonia and was again discharged on Levaquin. She was still on the Levaquin when she comes back in this time. Hospital course: Patient was treated with Rocephin, Levaquin which was continued, and vancomycin IV during her hospital stay. She lost IV access on 09/27 and was started on clindamycin by mouth which she tolerated very well. I had a high suspicion for potential aspiration given her recurrent presentation and CT scan of the chest was performed and did show some infiltrates bilaterally. She also had some pulmonary nodules which after discussion with the patient and family will not be followed up due to the patient's comfort cares goal. Exam in the day of discharge: On the day of discharge patient is doing very well. Vital signs are stable. She is actually off oxygen in the room and satting in the mid 90s. She is not normally on oxygen at the group home. She has no chest pain, no shortness of breath, no nausea, no vomiting, no diarrhea. Feels ready to go back to her home environment. - Discharge Data Discharge Date: 09/29/17 Discharge Disposition: DC/Tfer to SNF 03 Condition: Good - Discharge Diagnosis/Problem(s) (1) CHF (congestive heart failure) SNOMED Code(s): 43252256 ICD Code: I50.9 - HEART FAILURE, UNSPECIFIED Status: Acute Current Visit : Yes Problem Details: Continue oral Lasix at discharge. Follow up within 7 days for recheck BMP. Qualifiers: Congestive heart failure type: unspecified congestive heart failure type Congestive heart failure chronicity: acute on chronic Qualified Code(s): I50.9 - Heart failure, unspecified (2) Pneumonia SNOMED Code(s): 557748758 ICD Code: J18.9 - PNEUMONIA, UNSPECIFIED ORGANISM Status: Acute Current Visit: Yes Problem Details: Signficantly improved today, off oxygen. Continue clindamycin for a total of 7 days through 10/03 and continue probiotic. Outpatient swallow evaluation has already been arranged for tomorrow. Patient did have a coughing episode with thin liquids yesterday so will be discharged on nectar thickened liquids until results available. Qualifiers: Pneumonia type: aspiration pneumonia Laterality: right Lung location: upper lobe of lung (3) Chronic, continuous use of opioids SNOMED Code(s): 707511008 ICD Code: F11.90 - OPIOID USE, UNSPECIFIED, UNCOMPLICATED Status: Acute Current Visit: Yes Problem Details: Discussed the risk that the narcotics may be playing and respiratory suppression and level of consciousness suppression. Patient accepts risk and will continue current dose. Use topical capsaicin cream for hands (and any other external area) for pain PRN. (4) Constipation due to opioid therapy SNOMED Code(s): 188097165019373 ICD Code: K59.03 - DRUG INDUCED CONSTIPATION; T40.2X5A - ADVERSE EFFECT OF OTHER OPIOIDS, INITIAL ENCOUNTER Status: Acute Current Visit: Yes Problem Details: Continue stool softeners, monitoring. Could consider adding lactulose for additional laxative benefit. (5) Rheumatoid arthritis SNOMED Code(s): 80300907 ICD Code: M06.9 - RHEUMATOID ARTHRITIS, UNSPECIFIED Status: Acute Current Visit: Yes Problem Details: As above. Patient should hold methotrexate at least until a week after antibiotics are done and ideally a full 4 weeks from infection. If no flares, can restart Methotrexate on October 25. If flare, should be seen by her PCP and reassessed for restarting. May require prednisone course if sxs recur. Qualifiers: Laterality: unspecified laterality (6) Abnormal CT of the chest SNOMED Code(s): 543674487 ICD Code: R93.8 - ABNORMAL FINDINGS ON DIAGNOSTIC IMAGING OF BODY STRUCTURES Status: Acute Current Visit: Yes Problem Details: CT shows patchy infiltrates as well as a couple lung nodules. Discussed lung nodules and recommended follow up. Given comfort measures desire, patient will not have follow up CT scheduled. Daughter is in agreement with this. - Patient Summary/Data Consults: Consultations 09/27/17 13:49 Consult to Speech Language Pathology [CHRISTMAS BELL RINGER Evaluation and Treatment] [CONS] Routine Please Evaluate and Treat CHRISTMAS BELL RINGER Reason for Consult: swallow eval This query below is only for informational purposes and is not editable. Admission Diagnosis/Problem: Pneumonia - Patient Instructions Diet: Heart Healthy Diet (nectar thickened liquids) Activity: Cough & Deep Breathe Activity, Other: Head of bed at 30 degrees, aspiration precautions Showering/Bathing: May Shower - Discharge Plan Prescriptions/Med Rec: Clindamycin HCl [Cleocin] 300 mg PO QID 7 Days #20 cap Furosemide [Lasix] 20 mg PO DAILY 30 Days #30 tablet Non-Formulary Medication [NF Drug] 0 each TOP BID 30 Days #1 each Home Medications: Home Meds Acetaminophen [Acephen] 650 mg RC Q4HR PRN 12/13/16 [History] Calcium Carbonate/Vitamin D3 [Calcium 500-Vit D3 200 Tablet] 1 tab PO DAILY [History] Clopidogrel [Plavix] 75 mg PO DAILY 12/13/16 [History] Folic Acid 1 mg PO DAILY 12/13/16 [History] Loratadine 10 mg PO DAILY 12/13/16 [History] Menthol [Biofreeze] 1 applic TP BID PRN 12/13/16 [History] Menthol [Cough Drops] 5 mg PO ASDIRECTED PRN 12/13/16 [History] Teriparatide [Forteo] 20 mcg SQ DAILY 12/13/16 [History] guaiFENesin [Robitussin] 200 mg PO Q4HR PRN 12/13/16 [History] Albuterol/Ipratropium [DuoNeb 3.0-0.5 MG/3 ML] 3 ml INH QID 09/17/17 [History] Bifidobacterium Infantis [Align] 4 mg PO 1200 09/17/17 [History] Bisacodyl [Dulcolax] 10 mg RC Q72H PRN 09/17/17 [History] DULoxetine [Cymbalta] 60 mg PO DAILY 09/17/17 [History] Morphine [MS Contin] 15 mg PO BID 09/17/17 [History] Multivit-Min/FA/Lycopene/Lut [Certavite Sr-Antioxidant Tab] 1 tab PO DAILY 09/17 [History] Sennosides/Docusate Sodium [Senna S Tablet] 1 each PO BID 09/17/17 [History] oxyCODONE HCl [Oxycodone HCl] 5 mg PO BID PRN 09/17/17 [History] Acetaminophen [Tylenol] 650 mg PO Q4H PRN 09/18/17 [History] Calcium Carbonate [Tums] 1,000 mg PO Q4H PRN 09/18/17 [History] Gabapentin [Neurontin] 600 mg PO QID 09/18/17 [History] Magnesium Hydroxide [Milk of Magnesia] 30 ml PO DAILY PRN 09/18/17 [History] Polyethylene Glycol 3350 [MiraLAX] 17 gm PO DAILY PRN 09/18/17 [History] Albuterol/Ipratropium [DuoNeb 3.0-0.5 MG/3 ML] 3 ml IH QID PRN 09/23/17 [History ] Clindamycin HCl [Cleocin] 300 mg PO QID 7 Days #20 cap 09/29/17 [Rx] Furosemide [Lasix] 20 mg PO DAILY 30 Days #30 tablet 09/29/17 [Rx] Non-Formulary Medication [NF Drug] 0 each TOP BID 30 Days #1 each 09/29/17 [Rx] Patient Handouts: Venous Thromboembolism Prevention, Community-Acquired Pneumonia, Adult, [id number] Forms: ED Department Discharge Referrals: Kevin Bunn MD [Primary Care Provider] - - Patient Data Vitals - Most Recent: Last Vital Signs Temp 36.4 C 09/29/17 04:00 Pulse 92 09/29/17 04:00 Resp 19 09/29/17 04:00 BP 128/76 09/29/17 04:00 Pulse Ox 88 L 09/29/17 08:35 Weight - Most Recent: 53.24 kg I&O - Last 24 hours: Intake & Output 09/28/17 09/29/17 09/29/17 23:59 06:59 14:59 Intake Total Balance Lab Results - Last 24 hrs: Laboratory Results - last 24 hr 09/29/17 09/29/17 Range/Units 05:35 05:35 WBC 10.0 (4.5-12.0) X10-3/uL RBC 3.50 (3.23-5.20) x10(6)uL Hgb 10.5 L (11.5-15.5) g/dL Hct 32.2 (30.0-51.3) % MCV 91.8 (80-96) fL MCH 29.9 (27.7-33.6) pg MCHC 32.5 (32.2-35.4) g/dL RDW 16.5 H (11.5-15.5) % Plt Count 221 (125-369) X10(3)uL MPV 6.9 L (7.4-10.4) fL Neut % (Auto) 56.3 (46-82) % Lymph % (Auto) 33.6 (13-37) % [place] % (Auto) 3.2 L (4-12) % Eos % (Auto) 5 (1.0-5.0) % Baso % (Auto) 2 (0-2) % Neut # (Auto) 5.6 (1.6-8.3) # Lymph # (Auto) 3.4 (0.6-5.0) # [place] # (Auto) 0.3 (0.0-1.3) # Eos # (Auto) 0.5 (0.0-0.8) # Baso # (Auto) 0.2 (0.0-0.2) # Sodium 139 (135-145) mmol/L Potassium 5.0 (3.5-5.3) mmol/L Chloride 104 (100-110) mmol/L Carbon Dioxide 27 (23-29) mmol/L BUN 12 (8-23) mg/dL Creatinine 0.6 (0.6-1.3) mg/dL Est Cr Clr Drug Dosing 53.61 mL/min Estimated GFR (MDRD) > 60 (>60) BUN/Creatinine Ratio 20.0 (9-20) Glucose 96 (80-116) mg/dL Calcium 8.6 (8.6-10.2) mg/dL Total Bilirubin 0.7 (0.1-1.3) mg/dL AST 34 H D (5-27) IU/L ALT 40 H D (14-26) IU/L Total Protein 5.4 L (6.0-8.0) g/dL Albumin 2.3 L (3.2-4.6) g/dL Globulin 3.1 g/dL Albumin/Globulin Ratio 0.7 Med Orders - Current: Current Medications Acetaminophen (Tylenol) 650 mg PO Q4H PRN PRN Reason: Pain/Fever Last Admin: 09/26/17 07:37 Dose: 650 mg Albuterol/Ipratropium (Duoneb 3.0-0.5 Mg/3 Ml) 3 ml INH QID PRN PRN Reason: SOB/WHEEZING Last Admin: 09/28/17 09:37 Dose: 3 ml Bisacodyl (Dulcolax) 10 mg RECTAL Q72H PRN PRN Reason: Constipation Clindamycin HCl (Cleocin) 300 mg PO QID [facility] Stop: 10/04/17 17:01 Last Admin: 09/29/17 08:37 Dose: 300 mg Duloxetine HCl (Cymbalta) 60 mg PO DAILY [facility] Last Admin: 09/29/17 08:37 Dose: 60 mg Furosemide (Lasix) 20 mg PO DAILY [facility] Last Admin: 09/29/17 08:38 Dose: 20 mg Sodium Chloride (Normal Saline) 250 mls @ 100 mls/hr IV ASDIRECTED [facility] Last Admin: 09/25/17 13:30 Dose: 100 mls/hr Magnesium Hydroxide (Milk Of Magnesia) 30 ml PO DAILY PRN PRN Reason: Constipation Menthol (Perform Pain Reliever) 0 ml TP BID PRN PRN Reason: ARTHRITIS Morphine Sulfate (Ms Contin) 15 mg PO BID [facility] Last Admin: 09/29/17 08:38 Dose: 15 mg Non-Formulary Medication (Menthol [Cough Drops]) 5 mg PO ASDIRECTED PRN PRN Reason: Cough Capzasin Hp 0.1% (Cream) 0 each TOP BID [facility] Last Admin: 09/29/17 08:39 Dose: 1 each Oxycodone HCl (Oxycodone) 5 mg PO BID PRN PRN Reason: Pain Polyethylene Glycol (Miralax) 17 gm PO DAILY PRN PRN Reason: Constipation Last Admin: 09/26/17 08:24 Dose: 17 gm Saccharomyces Boulardii (Florastor) 250 mg PO 1200 [facility] Last Admin: 09/28/17 13:06 Dose: 250 mg Senna/Docusate Sodium (Senna Plus) 1 tab PO BID [facility] Last Admin: 09/29/17 08:40 Dose: 1 tab Sodium Chloride (Saline Flush) 10 ml FLUSH ASDIRECTED PRN PRN Reason: Keep Vein Open Last Admin: 09/27/17 08:47 Dose: 10 ml Teriparatide Acetate (Forteo) 20 mcg SUBCUT DAILY [facility] Last Admin: 09/29/17 08:38 Dose: 20 mcg Discontinued Medications Albuterol/Ipratropium (Duoneb 3.0-0.5 Mg/3 Ml) 3 ml NEB ONETIME ONE Stop: 09/23/17 08:47 Last Admin: 09/23/17 08:50 Dose: 3 ml Capsaicin (Capzasin-P 0.0375% Crm) 0 gm TOP BID [facility] Last Admin: 09/28/17 15:13 Dose: Not Given Ceftriaxone Sodium (Rocephin) 1,000 mg IM ONETIME ONE Stop: 09/27/17 12:42 Last Admin: 09/27/17 12:59 Dose: 1,000 mg Furosemide (Lasix) 40 mg IVPUSH NOW ONE Stop: 09/23/17 20:01 Last Admin: 09/23/17 20:03 Dose: 40 mg Furosemide (Lasix) 20 mg IVPUSH BID [facility] Last Admin: 09/27/17 08:44 Dose: 20 mg Levofloxacin/Dextrose 750 mg/ (Premix) 150 mls @ 100 mls/hr IV ONETIME ONE Stop: 09/23/17 10:49 Last Admin: 09/23/17 09:36 Dose: 100 mls/hr Sodium Chloride (Normal Saline) 500 mls @ 999 mls/hr IV .BOLUS ONE Stop: 09/23/17 09:51 Last Admin: 09/23/17 09:36 Dose: 400 mls/hr Vancomycin HCl 1,000 mg/ (Sodium Chloride) 250 mls @ 167 mls/hr IV ONETIME ONE Stop: 09/23/17 19:44 Last Admin: 09/23/17 19:55 Dose: 167 mls/hr Piperacillin Sod/Tazobactam (Sod 3.375 gm/ Sodium Chloride) 50 mls @ 100 mls/ hr IV ONETIME ONE Stop: 09/23/17 20:29 Last Admin: 09/23/17 22:09 Dose: 100 mls/hr Levofloxacin/Dextrose 750 mg/ (Premix) 150 mls @ 100 mls/hr IV Q24H [facility] Vancomycin HCl 1,000 mg/ (Sodium Chloride) 250 mls @ 250 mls/hr IV Q12H [facility] Last Admin: 09/24/17 20:24 Dose: 250 mls/hr Ceftriaxone Sodium 1,000 mg/ (Sodium Chloride) 50 mls @ 100 mls/hr IV Q24H [facility] Last Admin: 09/27/17 12:13 Dose: 100 mls/hr Levofloxacin/Dextrose 750 mg/ (Premix) 150 mls @ 100 mls/hr IV Q24H [facility] Last Admin: 09/25/17 13:30 Dose: 100 mls/hr Potassium Chloride 10 meq/ (Premix) 100 mls @ 50 mls/hr IV Q4H [facility] Stop: 09/26/17 07:59 Last Admin: 09/26/17 06:19 Dose: 50 mls/hr Sodium Chloride (Normal Saline) 500 mls @ 0 mls/hr IV ASDIRECTED ONE PRN Reason: KVO Stop: 09/25/17 14:38 Last Admin: 09/26/17 04:23 Dose: 10 mls/hr Vancomycin HCl 1,000 mg/ (Sodium Chloride) 250 mls @ 250 mls/hr IV Q18H [facility] Last Admin: 09/27/17 06:59 Dose: 250 mls/hr Levofloxacin/Dextrose 750 mg/ (Premix) 150 mls @ 100 mls/hr IV Q24H [facility] Last Admin: 09/26/17 14:41 Dose: 100 mls/hr Sodium Chloride (Normal Saline) 500 mls @ 30 mls/hr IV ASDIRECTED ONE Stop: 09/27/17 03:24 Last Admin: 09/26/17 17:33 Dose: 30 mls/hr Vancomycin HCl 1,000 mg/ (Sodium Chloride) 250 mls @ 250 mls/hr IV Q24H [facility] Last Admin: 09/27/17 16:56 Dose: Not Given Methotrexate (Methotrexate) 20 mg PO TU@0800 [facility] Last Admin: 09/24/17 10:03 Dose: 20 mg Potassium Chloride (Klor-Con M20) 40 meq PO BID [facility] Last Admin: 09/28/17 08:39 Dose: 40 meq Vancomycin HCl (Vancomycin) Confirm Administered Dose 1,000 mg .ROUTE .STK-MED ONE Stop: 09/23/17 18:36 Last Admin: 09/23/17 19:56 Dose: Not Given Vancomycin HCl (Pharmacy To Dose - Vancomycin) 1 dose .XX ASDIRECTED DONAL - Exam General: Reports: Alert, Oriented, Cooperative, No Acute Distress HEENT: Reports: Pupils Equal, Pupils Reactive Neck: Reports: Supple Lungs: Reports: Clear to Auscultation (Lungs show some very fine crackles in the bases bilaterally. Otherwise completely clear.), Normal Respiratory Effort Cardiovascular: Reports: Regular Rate, Regular Rhythm GI/Abdominal Exam: Normal Bowel Sounds, Non-Tender, No Distention Extremities: No Pedal Edema Skin: Reports: Warm, Dry *Q Meaningful Use (DIS) - VTE *Q VTE Criteria *Q: - Stroke *Q Stroke Criteria *Q: - AMI *Q AMI Criteria *Q:
[2017-09-29 09:08] VITALS: BP 110/61
== END 2017-09-29 10:35 | DRG 179 ==
LOC: FB.ED 08:36 → FB.MS 10:07 → OBSVTOIN 09-24 09:11
PROVIDERS: ADMIT Family Medicine; ATTEND Family Medicine
DX: J18.1 Lobar pneumonia, unspecified organism (principal); J69.0 Pneumonitis due to inhalation of food and vomit; Z87.891 Personal history of nicotine dependence; Z51.5 Encounter for palliative care; R09.02 Hypoxemia; M06.9 Rheumatoid arthritis, unspecified; Z66 Do not resuscitate; G89.4 Chronic pain syndrome; R06.03 Acute respiratory distress; R06.02 Shortness of breath; I25.10 Atherosclerotic heart disease of native coronary artery without angina pectoris; R53.83 Other fatigue; I50.9 Heart failure, unspecified; R93.8 Abnormal findings on diagnostic imaging of other specified body structures; R91.8 Other nonspecific abnormal finding of lung field; F11.90 Opioid use, unspecified, uncomplicated; K59.03 Drug induced constipation; I25.2 Old myocardial infarction; H54.7 Unspecified visual loss; Z95.5 Presence of coronary angioplasty implant and graft; Z88.6 Allergy status to analgesic agent; Z91.041 Radiographic dye allergy status; Z88.0 Allergy status to penicillin
CPT/HCPCS: 36415; 51702 ×2; 71010; 80048; 81001; 83605; 85025; 85610; 94640; 96365; 99285; J1940; J1956; J2543; J3370; J7040; J7050 ×8; J7620; 71250; 80053; 80202; 83880; 87070; 87205; 87449; 96366; 96375; 99220; A9270-GY; G0378; J0696; J3480; J8610

== ENCOUNTER 2017-10-06 17:28 | Emergency (ER) | payer MEDICARE ==
--- NOTE | 2017-10-06 19:07 | EDM.PDOC ---
ED HPI GENERAL MEDICAL PROBLEM - General Chief Complaint: Fever Stated Complaint: DECREASED LEVEL OF CONSCIOUSNESS Time Seen by Provider: 10/06/17 19:02 Source of Information: Reports: Patient History Limitations: Reports: No Limitations - History of Present Illness INITIAL COMMENTS - FREE TEXT/NARRATIVE: c/o weak pt on palliative care and comfort measures, pul CT 1w ago with severe COPD and multiple infiltrates b/l c/w aspiration, video swallow last showed pt unsafe for both thin liquid and nectar has been on several antbx courses in past 3w (clinda x 1, vanco x 1, levo x 2), no antbx x 2d has lived x 2y in [place] with who has severe memory problems son and dtr want to know if more antbx and IVF in hospital will be beneficial, unfortunately there are no treatment options given the state of her decline - Related Data Allergies Allergy/AdvReac Type Severity Reaction Status Date / Time aspirin Allergy Cannot Verified 10/06/17 18:36 Remember NSAIDS (Non-Steroidal Allergy Stomach Verified 10/06/17 18:36 Anti-Inflamma Upset Penicillins Allergy Hives Verified 10/06/17 18:36 red dye Allergy Hives Uncoded 10/06/17 18:36 Home Meds: Home Meds Acetaminophen [Acephen] 650 mg RC Q4HR PRN 12/13/16 [History] Calcium Carbonate/Vitamin D3 [Calcium 500-Vit D3 200 Tablet] 1 tab PO DAILY [History] Clopidogrel [Plavix] 75 mg PO DAILY 12/13/16 [History] Folic Acid 1 mg PO DAILY 12/13/16 [History] Loratadine 10 mg PO DAILY 12/13/16 [History] Menthol [Biofreeze] 1 applic TP BID PRN 12/13/16 [History] Menthol [Cough Drops] 5 mg PO ASDIRECTED PRN 12/13/16 [History] Teriparatide [Forteo] 20 mcg SQ DAILY 12/13/16 [History] guaiFENesin [Robitussin] 200 mg PO Q4HR PRN 12/13/16 [History] Albuterol/Ipratropium [DuoNeb 3.0-0.5 MG/3 ML] 3 ml INH QID 09/17/17 [History] Bifidobacterium Infantis [Align] 4 mg PO 1200 09/17/17 [History] Bisacodyl [Dulcolax] 10 mg RC Q72H PRN 09/17/17 [History] DULoxetine [Cymbalta] 60 mg PO DAILY 09/17/17 [History] Morphine [MS Contin] 15 mg PO BID 09/17/17 [History] Multivit-Min/FA/Lycopene/Lut [Certavite Sr-Antioxidant Tab] 1 tab PO DAILY 09/17 [History] Sennosides/Docusate Sodium [Senna S Tablet] 1 each PO BID 09/17/17 [History] oxyCODONE HCl [Oxycodone HCl] 5 mg PO BID PRN 09/17/17 [History] Acetaminophen [Tylenol] 650 mg PO Q4H PRN 09/18/17 [History] Calcium Carbonate [Tums] 1,000 mg PO Q4H PRN 09/18/17 [History] Gabapentin [Neurontin] 600 mg PO QID 09/18/17 [History] Magnesium Hydroxide [Milk of Magnesia] 30 ml PO DAILY PRN 09/18/17 [History] Polyethylene Glycol 3350 [MiraLAX] 17 gm PO DAILY PRN 09/18/17 [History] Albuterol/Ipratropium [DuoNeb 3.0-0.5 MG/3 ML] 3 ml IH QID PRN 09/23/17 [History ] Clindamycin HCl [Cleocin] 300 mg PO QID 7 Days #20 cap 09/29/17 [Rx] Furosemide [Lasix] 20 mg PO DAILY 30 Days #30 tablet 09/29/17 [Rx] Non-Formulary Medication [NF Drug] 0 each TOP BID 30 Days #1 each 09/29/17 [Rx] Past Medical History HEENT History: Reports: Cataract, Impaired Vision Cardiovascular History: Reports: MD, Stents Respiratory History: Reports: Pneumonia, Recurrent 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: Reports: GERD Genitourinary History: Reports: Urinary Incontinence [employer] History: Reports: Musculoskeletal History: Reports: Fracture, RA, Other (See Below) Other Musculoskeletal History: restless leg syndrome Neurological History: Reports: Headaches, Chronic - Infectious Disease History Infectious Disease History: Reports: Chicken Pox, Measles, Mumps - Past Surgical History HEENT Surgical History: Reports: Eye Surgery Musculoskeletal Surgical History: Reports: Other (See Below) Other Musculoskeletal Surgeries/Procedures:: some toe removed Social & Family History - Family History Family Medical History: Noncontributory - Tobacco Use Smoking Status *Q: Never Smoker Years of Tobacco use: 50 Packs/Tins Daily: 1 Used Tobacco, but Quit: Yes Month Tobacco Last Used: january Second Hand Smoke Exposure: No - Caffeine Use Caffeine Use: Reports: Coffee Other Caffeine Use: 2-3 - Alcohol Use Days Per Week of Alcohol Use: 0 - Recreational Drug Use Recreational Drug Use: No ED ROS GENERAL - Review of Systems Review Of Systems: See Below Constitutional: Reports: Decreased Appetite HEENT: Reports: No Symptoms Respiratory: Reports: Shortness of Breath Cardiovascular: Reports: No Symptoms Endocrine: Reports: No Symptoms GI/Abdominal: Reports: No Symptoms : Reports: No Symptoms Musculoskeletal: Reports: No Symptoms Skin: Reports: No Symptoms Neurological: Reports: Weakness Psychiatric: Reports: No Symptoms Hematologic/Lymphatic: Reports: No Symptoms Immunologic: Reports: No Symptoms ED EXAM, GENERAL - Physical Exam Exam: See Below General Appearance: Alert, WD/WN, Other (conversant, poor memory, taking fluids from a spoon) Nose: Normal Inspection, Normal Mucosa, No Blood Throat/Mouth: Normal Inspection Head: Atraumatic, Normocephalic Neck: Normal Inspection, Supple, Non-Tender, Other (eyes closed, does open, smiles a little, answers most questions yes/no) Respiratory/Chest: Other (O2 on via NC, fair AE, no wheezes/rales, no cough, no dyspnea, mild tachypnea, no discomfort) Cardiovascular: Regular Rate, Rhythm, No Gallop, No JVD, No Rub, Other (trace edema) Back Exam: Normal Inspection, Full Range of Motion, NT Extremities: Normal Inspection, Normal Range of Motion, No Pedal Edema Psychiatric: Normal Affect, Normal Mood Skin Exam: Warm, Dry, Intact, Normal Color, No Rash Lymphatic: No Adenopathy Course - Vital Signs Last Recorded V/S: Last Vital Signs Temp 36.4 C 10/06/17 18:15 Pulse Resp 16 10/06/17 18:15 BP 92/56 L 10/06/17 18:15 Pulse Ox 94 L 10/06/17 18:15 Departure - Departure Time of Disposition: 19:07 Disposition: DC/Tfer to [facility] Condition: Fair Clinical Impression: End of life care, Chronic pulmonary aspiration, Palliative care status, Comfort measures only status - Discharge Information Referrals: Kevin Bunn MD [Primary Care Provider] - Additional Instructions: Continue comfort measures. Unfortunately, there is no effective treatment for her chronic aspiration, which in turn is a complication of her underlying COPD and heart failure.
[2017-10-06 19:46] VITALS: BP 124/72
== END 2017-10-06 19:40 ==
LOC: FB.ED 17:28
DX: Z51.5 Encounter for palliative care (principal); J44.9 Chronic obstructive pulmonary disease, unspecified; I25.2 Old myocardial infarction; Z88.0 Allergy status to penicillin; Z88.6 Allergy status to analgesic agent
CPT/HCPCS: 99283